=== PATIENT | male | born 1945 | race African-American/Black ===

== ENCOUNTER 2018-10-06 21:46 | Inpatient (IN) | payer OTHER ==
[~2018-10-06] VITALS: Ht 177.8 cm; Wt 54.4 kg
[2018-10-06 21:46] VITALS: BP 175/103
--- NOTE | 2018-10-06 21:46 | NUR ---
PT LINDEN ALS. TAKEN TO BED 6
--- NOTE | 2018-10-06 21:47 | NUR ---
Dr. Ferris examining patient.
--- NOTE | 2018-10-06 21:48 | NUR ---
Respiratory Therapist at bedside for respiratory intervention.
[2018-10-06] MEDS ORDERED: ALBUTEROL SULFATE/IPRATROPIU 3 ML SOL IH ONE (21:50)
--- NOTE | 2018-10-06 21:50 | NUR ---
PT IS A 73 Y/O MALE WHO PRESENTS TO THE ED C/O SHORTNESS OF BREATH. PER EMS PT WAS WALKING OUTSIDE AND SUDDENLY BECAME SOB. PT NOTED TO BE ON CPAP ON INITIAL ASSESSMENT, WITH INITIAL O2 SAT 80S. PATIENT NOTED TO HAVE DIFFICULTY BREATHING. LUNG SOUNDS DIMINISHED IN BILATERAL BASES. PT IN NO SIGNS OF CP, N/V/D. PT AWAKE AND ALERT, ABLE TO ANSWER QUESTIONS APPROPRIATELY. PT REPOSITIONED FOR COMFORT, BED IN LOWEST POSITION. ER MD DR. CERVANTES NOTIFIED. WILL CONTINUE TO MONITOR. HX HTN, DM NKA
--- NOTE | 2018-10-06 21:53 | NUR ---
X-Ray at bedside.
[2018-10-06] MEDS ORDERED: METF500T PO (22:00)
[2018-10-06] MEDS ORDERED: DORZ10SO23 OP (22:00)
[2018-10-06] MEDS ORDERED: VANCOMYCIN 1,000 MG in DEXTROSE 5% 250 ML IV ONE (22:00)
[2018-10-06] MEDS ORDERED: NITROGLYCERIN 2% 1 GM PKT TP ONE (22:00)
[2018-10-06] MEDS ORDERED: LISI-420 PO (22:00)
[2018-10-06] MEDS ORDERED: ATOR40TA PO (22:00)
[2018-10-06] MEDS ORDERED: FURO-572 PO (22:00)
[2018-10-06] MEDS ORDERED: PIPERACILLIN/TAZOBACTAM 3.375 GM in DEXTROSE 5% 50 ML IV ONE (22:00)
[2018-10-06] MEDS ORDERED: ORE25 PO (22:00)
[2018-10-06] MEDS ORDERED: ASPI-1718 PO (22:00)
[2018-10-06] MEDS ORDERED: METO100T14 PO (22:00)
[2018-10-06] MEDS ORDERED: NITROGLYCERIN 0.4 MG TAB SL ONE (22:00)
[2018-10-06] MEDS ORDERED: AMLO10TA PO (22:00)
[2018-10-06] MEDS ORDERED: ISOS10TA9 PO (22:00)
[2018-10-06 22:03] VITALS: BP 185/89
[2018-10-06] MEDS ORDERED: NACL 0.9% 250 ML IV ONE (22:15)
[2018-10-06 22:30] LABS: BASOPHILS % (AUTO) 0.6 % (0.0-2.0); EOSINOPHILS # (AUTO) 0.1 K/uL (0-0.4); EOSINOPHILS % (AUTO) 1.7 % (0.0-4.0); HEMATOCRIT 44.2 % (36-52); HEMOGLOBIN 14.1 g/dL (12.0-18.0); LYMPHOCYTES # (AUTO) 1.2 K/uL (2.0-11.5); LYMPHOCYTES % (AUTO) 22.8 % (20.5-51.1); MEAN CORPUSCULAR HEMOGLOBIN 29 pg (27-31); MEAN CORPUSCULAR HGB CONC 32 g/dL (33-37); MEAN CORPUSCULAR VOLUME 91.1 fL (80-94); MONOCYTES # (AUTO) 0.3 K/uL (0.8-1.0); NEUTROPHILS # (AUTO) 3.7 K/uL (1.8-7.7); NEUTROPHILS % (AUTO) 68.9 % (42.2-75.2); PLATELET COUNT (AUTO) 207 K/uL (140-450); RED BLOOD CELL COUNT(AUTO) 4.85 MIL/uL (4.20-6.10); RED CELL DISTRIBUTION WIDTH 15.5 % (11.6-13.7); WHITE BLOOD COUNT (AUTO) 5.4 K/uL (4.8-10.8)
[2018-10-06] MEDS ORDERED: VANCOMYCIN 1,000 MG VIAL ONE (22:30)
[2018-10-06] MEDS ORDERED: PIPERACILLIN/TAZOBACTAM 3.375 GM VIAL IV ONE (22:30)
--- NOTE | 2018-10-06 22:32 | NUR ---
PT RECEIVED IN ER VIA AMBULANCE ON CPAP. PT SOB. PLACED ON V60 BIPAP 10/5 100% AND ADMINISTERED DUONEB TX INLINE. PT WHEEZING BILATERALLY. ABG DONE AND RESULTS CALLED TO ER PHYSICIAN. FIO2 CHANGED TO 50% PER MD'S APPROVAL. PT STABLE AT THIS TIME. NO DISTRESS NOTED. WILL MONITOR.
--- NOTE | 2018-10-06 22:45 | NUR ---
REMOVED NITRO PATCH AT THIS TIME PER DR. CERVANTES.
[2018-10-06 22:55] LABS: ANION GAP 18.1 (8-16); CARBON DIOXIDE 21.7 mmol/L (21-32); CHLORIDE 104 mmol/L (98-107); CREATININE 1.7 mg/dL (0.7-1.3); GLUCOSE 243 mg/dL (74-106); POTASSIUM 3.8 mmol/L (3.5-5.1); SODIUM SERUM 140 mmol/L (136-145); UREA NITROGEN, BLOOD 17 mg/dL (7-18)
[2018-10-06 23:18] LABS: ASPARTATE AMINOTRANSFERASE 15 U/L (15-37); MAGNESIUM 1.8 mg/dL (1.8-2.4); THYROID STIMULATING HORMONE 5.21 uIU/mL (0.34-3.74); TOTAL BILIRUBIN 0.5 mg/dL (0.0-1.0)
[2018-10-06] MEDS ORDERED: NACL 0.9% 500 ML IV ONE (23:20)
[2018-10-06] MEDS ORDERED: ACETAMINOPHEN 325 MG TAB PO PRN (23:30)
[2018-10-06] MEDS ORDERED: ONDANSETRON 4 MG/2 ML VIAL IVP PRN (23:30)
[2018-10-06] MEDS ORDERED: HYDROcodone/APAP 7.5/325 MG 1 TAB PO PRN (23:30)
--- NOTE | 2018-10-06 23:53 | NUR ---
Patient will be admitted to care of DR. DANIEL. Admited to ICU. Will go to room 5. Belongings list completed. Report to FIBROUS PLASTERER.
[2018-10-06] MEDS ORDERED: DEXTROSE 50% 50 ML SYR IVP PRN (23:55)
[2018-10-07] VITALS (80 sets, daily range): BP systolic 98–225; BP diastolic 48–144
--- NOTE | 2018-10-07 00:01 | NUR ---
RECEIVED BEDSIDE REPORT FROM [facility], PATIENT AWAKE, ABLE TO FOLLOW COMMANDS. O2SAT 86% RR 30 LABORED AND DEEP, RT AT BEDSIDE, PLACED PATIENT ON BIPAP. A-FIB ON MONITOR, BP 142/92 MAP 110. NOTED 1+ PITTING EDEMA ON BLE, SKIN PEELING ON BOTH FEET, NO OPEN WOUNDS. LEFT FA 18 G INFUSING VANCO AT 165 ML. RIGHT FA 20 GM DRESSING INTACT. BED BATH PROVIDED. ADMISSION QUESTIONS ASKED. MRSA SCREEN COLLECTED AND SENT TO LAB.
[2018-10-07 00:09] LABS: PROTHROMBIN TIME 10.6 secs (10.8-13.4)
[2018-10-07 00:13] LABS: PHOSPHORUS 4.6 mg/dL (2.5-4.9); THYROID STIMULATING HORMONE 5.09 uIU/mL (0.34-3.74)
[2018-10-07] MEDS: ALBUTEROL SULFATE/IPRATROPIU 3 ML SOL IH PRN ×2 (00:39→09:47)
--- NOTE | 2018-10-07 00:50 | NUR ---
DR. GARNER IN THE UNIT. MADE AWARE THAT PT WANTS TO RECEIVED PNEUMONIA VACCINE UPON DISCHARGE. PER DR. GARNER, PT IS NOT ELIGIBLE FOR VACCINE DUE TO CURRENT PNEUMONIA AND ACUTE INFECTION.
[2018-10-07] MEDS: DEXT 5% /NACL 0.9% 1,000 ML IV SCH ×3 (01:04→20:25)
--- NOTE | 2018-10-07 01:04 | NUR ---
STARTED D5/NS AT 126 ML/HR IN LEFT FA 20 G.
--- NOTE | 2018-10-07 02:51 | NUR ---
LACTIC ACID NOW 3.1 WILL CONTINUE TO MONITOR
--- NOTE | 2018-10-07 03:00 | NUR ---
PATIENT SLEEPING IN BED, BIPAP ON, O2 SAT 93%. WILL CONTINUE TO MONITOR
--- NOTE | 2018-10-07 04:36 | NUR ---
EPISODE OF V TACH ON THE MONITOR FOR [address] GARNER
--- NOTE | 2018-10-07 05:20 | NUR ---
LABS DRAWN AT BEDSIDE
[2018-10-07] MEDS ORDERED: PIPERACILLIN/TAZOBACTAM 3.375 GM VIAL IV ONE (05:23)
[2018-10-07 05:43] LABS: BASOPHILS % (AUTO) 0.7 % (0.0-2.0); EOSINOPHILS % (AUTO) 0.3 % (0.0-4.0); HEMATOCRIT 37.5 % (36-52); LYMPHOCYTES # (AUTO) 0.7 K/uL (2.0-11.5); MEAN CORPUSCULAR HEMOGLOBIN 29 pg (27-31); MEAN CORPUSCULAR HGB CONC 32 g/dL (33-37); MEAN CORPUSCULAR VOLUME 90.2 fL (80-94); MONOCYTES # (AUTO) 0.4 K/uL (0.8-1.0); NEUTROPHILS # (AUTO) 4.9 K/uL (1.8-7.7); PLATELET COUNT (AUTO) 182 K/uL (140-450); RED BLOOD CELL COUNT(AUTO) 4.15 MIL/uL (4.20-6.10); RED CELL DISTRIBUTION WIDTH 14.8 % (11.6-13.7); WHITE BLOOD COUNT (AUTO) 6.1 K/uL (4.8-10.8)
[2018-10-07] MEDS ORDERED: ALBUTEROL SULFATE/IPRATROPIU 3 ML SOL IH SCH (06:00)
[2018-10-07 06:09] LABS: ANION GAP 14.4 (8-16); CARBON DIOXIDE 22.5 mmol/L (21-32); CHLORIDE 108 mmol/L (98-107); CREATININE 1.5 mg/dL (0.7-1.3); GLUCOSE 187 mg/dL (74-106); POTASSIUM 3.9 mmol/L (3.5-5.1); SODIUM SERUM 141 mmol/L (136-145); UREA NITROGEN, BLOOD 16 mg/dL (7-18)
[2018-10-07 06:14] LABS: MAGNESIUM 1.7 mg/dL (1.8-2.4); PHOSPHORUS 3.6 mg/dL (2.5-4.9)
[2018-10-07 06:14] LABS: CHOL/HDL RATIO 3.3 (1-4.5)
[2018-10-07] MEDS: BLOOD GLUCOSE MONITORING 1 DEV DEV FS SCH ×4 (07:00→20:47)
[2018-10-07] MEDS ORDERED: hePARIN / DEXT 5% PREMIX 250 ML IV SCH (07:00)
[2018-10-07] MEDS ORDERED: PIPER/TAZO 3.375GM/D5W PREMIX 50 ML IV SCH (07:00)
[2018-10-07] MEDS ORDERED: HEPARIN PER PHARMACY MC PRN (07:00)
--- NOTE | 2018-10-07 07:16 | NUR ---
RECEIVED REPORT FROM HOISTER RN. PT IN BED, NOTED WITH LABORED BREATHING ON BIPAP, FIO2 40%. A FIB ON MONITOR. SPO2 91%. HOB ELEVATED. A/O X3. SKIN DRY AND WARM TO TOUCH. LUNGS CLEAR. RFA 20G. D5%NS INFUSING AT 126 ML/HR. LFA 18G. SALINE LOCK. FLUSHED. LINES INTACT. ABDOMEN SOFT ROUND AND NON-TENDER. ACTIVE BOWEL SOUND. DRY, PEELING SKIN NOTED ON B/L FEET. EDEMATOUS BOTH LOWER EXTREMITIES NOTED. WILL CONTINUE TO MONITOR.
--- NOTE | 2018-10-07 07:16 | NUR ---
ENDORSED PATIENT TO DAY SHIFT NURSE ALEJANDRA FOR CONTINUITY OF CARE.
--- NOTE | 2018-10-07 07:17 | NUR ---
BLOOD GLUCOSE 166 RESIDENTS STATED NOT TO GIVE COVERAGE SINCE PATIENT NPO
[2018-10-07] MEDS ORDERED: ETOMIDATE 20 MG/10 ML VIAL IVP ONE ×2 (07:25→08:00)
[2018-10-07] MEDS ORDERED: fentaNYL 1 MG in NACL 0.9% 80 ML IV PRN (07:25)
[2018-10-07] MEDS ORDERED: SUCCINYLCHOLINE CHLORIDE 200 MG/10 ML VIAL IVP ONE (07:25)
[2018-10-07] MEDS ORDERED: MIDAZOLAM MDV 50 MG in NACL 0.9% 40 ML IV PRN (07:25)
--- NOTE | 2018-10-07 07:35 | NUR ---
DR. FRANCISCO AND DR. GAGE AT THE BEDSIDE. RT AT THE BEDSIDE. INTUBATION DONE BY DR. VALLADARES. ASSISTED NEEDED.
[2018-10-07] MEDS ORDERED: VANCOMYCIN PER PHARMACY MC PRN (07:40)
--- NOTE | 2018-10-07 07:40 | NUR ---
PATIENT HAS BEEN INTUBATED. SETTINGS: AC/PRVC RATE 14, VT 400, TI 0.80, PEEP 5, 100% O2. SUBSTERNAL RETRACTIONS CAN BE SEEN. CLOSELY MONITORING.
[2018-10-07] MEDS ORDERED: FUROSEMIDE 40 MG/4 ML VIAL IVP ONE ×2 (07:50→08:03)
[2018-10-07] MEDS ORDERED: PROPOFOL 1000 MG/100 ML PREMIX 100 ML IV ONE (07:54)
--- NOTE | 2018-10-07 08:00 | NUR ---
INSERTED NG-TUBE. ABLE ASPIRATE GASTRIC CONTENTS. POSITIVE PLACEMENT NOTED.
--- NOTE | 2018-10-07 08:15 | NUR ---
INSERTED SOTO CATHETER. URINE SPECIMEN SENT TO THE LAB FOR UA MICROSCOPIC.
[2018-10-07 08:40] LABS: APPEARANCE,URINE SL CLOUDY (CLEAR); BILIRUBIN,URINE NEGATIVE (NEGATIVE); BLOOD, URINE TRACE-I (NEGATIVE); COLOR,URINE YELLOW (YELLOW); LEUKOCYTE ESTERASE ,URINE NEGATIVE (NEGATIVE); NITRITE, URINE NEGATIVE (NEGATIVE); PH,URINE 5.5 (5.0-9.0); UGLUCOSE NEGATIVE (NEGATIVE)
--- NOTE | 2018-10-07 08:45 | NUR ---
SUCTIONED LARGE AMOUNT OF BLOOD TINGED SPUTUM. VAP ORAL CARE PROVIDED. KEPT PT CLEAN AND DRY. REPOSITIONED. BED IN LOW POSITIONED LOCKED.
[2018-10-07 08:47] LABS: BARBITURATE, URINE NEG. ng/ml (NEG <=200); BENZODIAZEPINE, URINE NEG. ng/mL (NEG <=200); CANNABINOID, URINE NEG. ng/mL (NEG <=50); COCAINE, URINE NEG. ng/mL (NEG <=300); OPIATE, URINE NEG. ng/mL (NEG <=2000); PHENCYCLIDINE SCREEN,URINE NEG. ng/mL (NEG <=25)
[2018-10-07] MEDS ORDERED: metFORMIN 500 MG TAB PO SCH (09:00)
[2018-10-07] MEDS: DORZOLAMIDE 2% OP 10 ML BTL OP SCH ×2 (09:00→20:30)
[2018-10-07] MEDS ORDERED: MAG SULF 2000 MG/WATER PREMIX 50 ML IV SCH (09:00)
--- NOTE | 2018-10-07 09:23 | NUR ---
PATIENT HAS BEEN SCREENED AND CATEGORIZED HIGH NUTRITION RISK. PATIENT WILL BE SEEN WITHIN 1-2 DAYS OF ADMISSION. 10/08/[address]
[2018-10-07] MEDS: fentaNYL 1 MG in NACL 0.9% 80 ML IV PRN (09:27)
[2018-10-07] MEDS: MIDAZOLAM MDV 50 MG in NACL 0.9% 40 ML IV PRN (09:33)
[2018-10-07] MEDS: PROPOFOL 1000 MG/100 ML PREMIX 100 ML IV PRN ×4 (09:43→22:38)
[2018-10-07] MEDS: BUDESONIDE 0.25 MG/2 ML NEBU INH SCH ×2 (09:46→19:55)
[2018-10-07] MEDS: AMIODARONE 450 MG in DEXTROSE 5% 250 ML IV SCH ×2 (09:55→20:27)
[2018-10-07 10:18] LABS: RBC,URINE 0-5 /HPF (0-5); WBC,URINE 0-5 /HPF (0-5)
[2018-10-07] MEDS: hePARIN / DEXT 5% PREMIX 250 ML IV SCH (10:26)
[2018-10-07] MEDS: PANTOPRAZOLE 40 MG INJ VIAL IVP SCH (10:37)
[2018-10-07] MEDS: ASPIRIN 81 MG TAB.CHEW PO SCH (10:37)
[2018-10-07] MEDS: ATORVASTATIN 20 MG TAB PO SCH (10:38)
[2018-10-07] MEDS: DOCUSATE SODIUM 100 MG GELCAP PO SCH ×2 (10:38→20:31)
--- NOTE | 2018-10-07 11:10 | NUR ---
CENTRAL LINE INSERTION ABORTED FOR QUESTIONABLE BREAK IN THE GUIDEWIRE DURING INSERTION.
--- NOTE | 2018-10-07 11:15 | NUR ---
CALLED [facility], SPOKE TO [facility] FOR URGENT TRANSFER TO HIGHER LEVEL OF CARE FOR GUIDE WIRE RETRIEVAL NEEDS FOR INTERVENTIONAL RADIOLOGY.
--- NOTE | 2018-10-07 11:40 | NUR ---
CALLED [facility], SPOKE TO PRODUCT MARKETING DIRECTOR FOR URGENT TRANSFER TO HIGHER LEVEL OF CARE FOR GUIDE WIRE RETRIEVAL NEEDS FOR INTERVENTIONAL RADIOLOGY.
[2018-10-07] MEDS: INSULIN LISPRO SLIDING SCALE 100 UNITS/ML VIAL SUBQ PRN ×3 (11:51→20:51)
[2018-10-07] MEDS: ALBUTEROL SULFATE/IPRATROPIU 3 ML SOL IH SCH ×4 (11:58→23:22)
--- NOTE | 2018-10-07 12:09 | NUR ---
CHEST X-RAY RESULT REVEALED THAT THERE IS NO FOREIGN OBJECT IN THE CHEST. DR. LEA IN ICU MADE AWARE. OLD GUIDE WIRE USED DURING CENTRAL LINE INSERTION FOR PATIENT WAS COMPARED TO NEW SET OF CENTRAL LINE GUIDE WIRE. BOTH GUIDE WIRES WERE EQUAL IN LENGTH. NO BROKEN IN PATIENT'S GUIDE WIRE NOTED.
--- NOTE | 2018-10-07 13:30 | NUR ---
PATIENT'S SETTINGS CHANGED TO: RATE 16, VT 450, INSP TIME 0.8, PEEP 7, 80% O2. PT IS STABLE. CLOSELY MONITORED.
--- NOTE | 2018-10-07 14:15 | NUR ---
10/07/18 RD INITIAL ASSESSMENT COMPLETED PLEASE REFER TO NUTRITION ASSESSMENT UNDER CARE ACTIVITY FOR ESTIMATED NUTRITIONAL NEEDS. RD RECOMMENDATIONS: 1. RECOMMEND INCREASE TF RATE OF GLUCERNA 1.2 TO 65ML/HR, FWF:100ML Q 6HR. THIS PROVIDES 1872KCAL, 94G PROTEIN AND 1660ML TOTAL FLUID DAILY. THIS MEETS 92% CALORIC NEEDS AND 100% PROTEIN NEEDS. 2.PROPOFOL AT 12.24ML/HR PROVIDES AN ADDITIONAL 324KCAL. 3. RD WILL F/U 2-3 DAYS; HIGH RISK. ELOY LIN, RD
--- NOTE | 2018-10-07 14:53 | NUR ---
RESTING IN BED. CONTINUE ON VENT SETTING AC/PRVC FIO2 80% TV 450, RR 16 PEEP 7. CONTINUE ON SEDATION RASS -4. HOB ELEVATED. BED IN LOW POSITION LOCKED.
[2018-10-07] MEDS: PIPERACILLIN/TAZOBACTAM 3.375 GM in DEXTROSE 5% 50 ML IV SCH ×2 (15:21→23:35)
--- NOTE | 2018-10-07 15:30 | NUR ---
NG-TUBE FEEDING GLUCERNA STARTED.
--- NOTE | 2018-10-07 16:30 | NUR ---
RESIDUAL NOTED 0 ML. CONTINUED NG-TUBE FEEDING.
--- NOTE | 2018-10-07 16:53 | NUR ---
ABG ON SETTINGS OF: RATE 16, VT 450, INSP TIME 0.8, PEEP 7, 80% O2 - PH 7.35, CO 34, PO 69, HCO3 19, SO2 93.5. DR VALLADARES HAS ORDERED TO CHANGE PEEP TO 8.
--- NOTE | 2018-10-07 19:00 | NUR ---
NO CHANGE IN CONDITION NOTED. CONTINUE ON SAAME VENT SETTING. ON SEDATION. RASS -4. HOB ELEVATED. IV SITES INTACT.
--- NOTE | 2018-10-07 19:25 | NUR ---
REPORT GIVEN TO INSTRUMENTAL TEACHER RN FOR CONTINUITY OF CARE. PT STABLE.
--- NOTE | 2018-10-07 19:30 | NUR ---
RECEIVED REPORT FROM MORNING RN, ALEJANDRA, FOR CONTINUITY OF CARE. VS STABLE AT THIS TIME. AFEBRILE. FLACC 0. PT UNABLE TO MAKE NEEDS KNOW OR VERBALIZE UNDERSTANDING. PT CURRENTLY SEDATED WITH PROPOFOL AT 50MCG/KG/MIN WITH DRY WT 68KG. RASS -4. FENTANYL DRIP RUNNING AT 34MCG/HR. VERSED AT 2MG/HR. PT DOES NOT APPEAR TO BE IN ANY DISCOMFORT AT THIS TIME. LUNG SOUNDS DIMINISHED. ETT TO VENT WITH SETTINGS A/C VC FIO2 80%, TV 450, RR16, AND PEEP 7. CHEST RISE SYMMETRIC. NO SOB NOTED. S1+S2 HEARD. PULSES PALPABLE IN ALL EXTREMITIES. AFIB ON MONITOR. BP WNL. PT ON AMIODARONE DRIP AT 0.5MG/MIN. PT ON HEPARIN AT 820 UNITS/HR. ABDOMEN ROUND, SOFT AND NONDISTENDED. BS ACTIVE IN ALL QUADRANTS. NGT THROUGH RIGHT NARES. SECURED IN PLACE. PLACEMENT CHECKED. NO RESIDUAL ASPIRATED. PT HAS GLUCERNA AT 20ML/HR. PT HAS RIGHT UPPER ARM PICC LINE THAT IS PATENT, INTACT AND ASYMPTOMATIC. DRESSING C/D/I WELL. PT HAS D5 NS AT 75ML/HR. SKIN IS WARM AND DRY. PT'S BILATERAL FOOT IS DRY AND FLAKY. SOTO CATHETER IN PLACE WITH CLOUDY, DARK JASS URINE WITH SEDIMENTS. KEPT HOB AT 30 DEGREES. BED AT LOW POSSIBLE POSITION. ALL SAFETY PRECAUTIONS ARE IN PLACE.
--- NOTE | 2018-10-07 20:02 | NUR ---
RECEIVED PT INTUBATED, VENT CK DONE, PEEP 8, AND I DECREASED FIO2 TO 70%, MED NEB IN LINE DUONEB AND FALLOW WITH PULMICORT
[2018-10-07] MEDS ORDERED: AMIODARONE 450 MG/9 ML VIAL IV ONE (20:33)
--- NOTE | 2018-10-07 20:43 | NUR ---
DR. BRAVO AT BEDSIDE TO SEE PT. UPDATED HIM REGARDING THE PT'S CONDITION. WILL FOLLOW-UP WITH ANY NEW ORDERS.
--- NOTE | 2018-10-07 20:44 | NUR ---
CALLED DR. GARNER TO NOTIFY HIM THAT PT'S FAMILY IS AT BEDSIDE AND WANTED TO SPEAK WITH HIM REGARDING THE PT'S CONDITION. PER DR. GARNER, HE WILL COME TO THE UNIT
--- NOTE | 2018-10-07 20:49 | NUR ---
DR. GARNER AT BEDSIDE TO SPEAK WITH PT'S FAMILY.
[2018-10-07] MEDS ORDERED: VANCOMYCIN 1,000 MG in DEXTROSE 5% 250 ML IV SCH (21:00)
[2018-10-07] MEDS: AZITHROMYCIN 500 MG in DEXTROSE 5% 250 ML IV SCH (22:13)
[2018-10-07] MEDS ORDERED: AZITHROMYCIN 500 MG INJ VIAL IV ONE (22:16)
--- NOTE | 2018-10-07 23:26 | NUR ---
CALLED LAB TO NOTIFY THEM REGARDING NEW ORDERS THAT DR. BRAVO PUT IN WHEN HE MADE ROUNDS. SPOKE WITH ABILIO AND ACCORDING TO HER IT WAS COLLECTED.
--- NOTE | 2018-10-07 23:41 | NUR ---
PT'S FEEDING RATE INCREASED. CURRENTLY RUNNING AT 30ML/HR.
--- NOTE | 2018-10-07 23:52 | NUR ---
VENT CK DONE, PEEP AT 6, FIO2 TO 60%
[2018-10-08] VITALS (102 sets, daily range): BP systolic 89–172; BP diastolic 51–124
--- NOTE | 2018-10-08 00:30 | NUR ---
RECEIVED A CALL FROM LAB, PER ABILIO TB GOLD TO BE DRAWN ON 10/08/18 IN THE AFTERNOON. WILL COMMUNICATE TO THE NEXT SHIFT.
--- NOTE | 2018-10-08 01:17 | NUR ---
VS REMAINS STABLE. SINUS ARRHYTHMIA ON MONITOR. RESPIRATIONS ARE EVEN AND UNLABORED. PT DOES NOT APPEAR TO BE EXPERIENCING ANY DISCOMFORT AT THIS TIME. FLACC 0. RASS -4. ALL SAFETY PRECAUTIONS ARE IN PLACE. PICC LINE IN USE AT THIS TIME. ALL DRIPS ARE LABELED. WILL CONTINUE TO MONITOR PT.
[2018-10-08] MEDS: DEXT 5% /NACL 0.9% 1,000 ML IV SCH ×2 (02:22→15:52)
[2018-10-08] MEDS: PROPOFOL 1000 MG/100 ML PREMIX 100 ML IV PRN ×9 (03:00→23:53)
--- NOTE | 2018-10-08 03:11 | NUR ---
PT REMAINS SEDATED AT THIS TIME. RASS -4. FLACC 0. VS STABLE WITH HR BETWEEN SINUS ARRHYTHMIA AND AFIB. RESPIRATIONS ARE EVEN AND UNLABORED. CHEST RISE SYMMETRIC. OXYGEN SATURATIONS WNL. NO BM NOTED AT THIS TIME. WILL RECHECK RESIDUAL AND INCREASE FEEDING TOLERATED. ALL IV SITES REMAINS INTACT AND ASYMPTOMATIC.
--- NOTE | 2018-10-08 03:20 | NUR ---
PEEP 5, FIO2 AT 55%, PT SATURATION IS MORE THAN 96%
[2018-10-08] MEDS: ALBUTEROL SULFATE/IPRATROPIU 3 ML SOL IH SCH ×6 (03:38→23:36)
--- NOTE | 2018-10-08 05:00 | NUR ---
NO CHANGE IN PT'S CONDITION AT THIS TIME. VS STABLE. NO BM NOTED. ALL SAFETY PRECAUTIONS ARE IN PLACE. WILL CONTINUE TO MONITOR PT.
[2018-10-08 06:35] LABS: MAGNESIUM 1.9 mg/dL (1.8-2.4); PHOSPHORUS 4.2 mg/dL (2.5-4.9)
[2018-10-08 06:39] LABS: ANION GAP 12.4 (8-16); CARBON DIOXIDE 25.5 mmol/L (21-32); CHLORIDE 105 mmol/L (98-107); CREATININE 1.8 mg/dL (0.7-1.3); GLUCOSE 167 mg/dL (74-106); POTASSIUM 3.9 mmol/L (3.5-5.1); SODIUM SERUM 139 mmol/L (136-145); UREA NITROGEN, BLOOD 18 mg/dL (7-18)
[2018-10-08] MEDS: MIDAZOLAM MDV 50 MG in NACL 0.9% 40 ML IV PRN ×2 (06:42→22:02)
[2018-10-08] MEDS: PIPERACILLIN/TAZOBACTAM 3.375 GM in DEXTROSE 5% 50 ML IV SCH ×3 (06:45→23:33)
[2018-10-08] MEDS: BLOOD GLUCOSE MONITORING 1 DEV DEV FS SCH ×4 (06:48→20:51)
[2018-10-08] MEDS: INSULIN LISPRO SLIDING SCALE 100 UNITS/ML VIAL SUBQ PRN (06:49)
[2018-10-08 06:54] LABS: BASOPHILS # (AUTO) 0.1 K/uL (0.00-0.22); BASOPHILS % (AUTO) 0.9 % (0.0-2.0); EOSINOPHILS # (AUTO) 0.3 K/uL (0-0.4); HEMATOCRIT 36.7 % (36-52); HEMOGLOBIN 11.9 g/dL (12.0-18.0); LYMPHOCYTES # (AUTO) 1.1 K/uL (2.0-11.5); LYMPHOCYTES % (AUTO) 13.9 % (20.5-51.1); MEAN CORPUSCULAR HEMOGLOBIN 30 pg (27-31); MEAN CORPUSCULAR HGB CONC 33 g/dL (33-37); MEAN CORPUSCULAR VOLUME 90.8 fL (80-94); MONOCYTES # (AUTO) 0.4 K/uL (0.8-1.0); MONOCYTES % (AUTO) 5.7 % (1.7-9.3); NEUTROPHILS # (AUTO) 5.8 K/uL (1.8-7.7); NEUTROPHILS % (AUTO) 75.5 % (42.2-75.2); PLATELET COUNT (AUTO) 209 K/uL (140-450); RED BLOOD CELL COUNT(AUTO) 4.04 MIL/uL (4.20-6.10); RED CELL DISTRIBUTION WIDTH 15.3 % (11.6-13.7); WHITE BLOOD COUNT (AUTO) 7.7 K/uL (4.8-10.8)
[2018-10-08] MEDS: BUDESONIDE 0.25 MG/2 ML NEBU INH SCH ×2 (07:19→19:24)
--- NOTE | 2018-10-08 07:19 | NUR ---
RECEIVED PT ON VENT RATE 16, VT 450, PEEP 5, O2 55%. HR 96, SAT 100%. NO RESP DISTRESS. SEMI FOWLERS POSITION. VENT BRAKES ON. VENT PLUGGED INTO RED OUTLETS. AMBU BAG AT BEDSIDE.
--- NOTE | 2018-10-08 07:30 | NUR ---
REPORT GIVEN TO MORNING RNALEXSANDER FOR CONTINUITY OF CARE. VS STABLE AT THIS TIME. ENDORSED PT'S BELONGINGS THAT ARE AT BEDSIDE.
--- NOTE | 2018-10-08 07:30 | NUR ---
RECEIVED BEDSIDE REPORT FROM PAPER REWINDER OPERATOR RN. PT IS SEDATED, RASS -4. AFEBRILE. FLACC 0. PT UNABLE TO MAKE NEEDS KNOW OR FOLLOW COMMANDS. A. FIB ON MONITOR. S1+S2 HEARD. PULSES PALPABLE IN ALL EXTREMITIES. PT IS ETT TO VENT WITH SETTINGS A/C PRVC FIO2 55%, TV 450, RR 16, AND PEEP 5. CHEST RISE SYMMETRIC BUT BREATHING LABORED. RHONCHI HEARD BILATERALLY, DIMINISHED LOWER LOBES. PICC LINE TO RIGHT UPPER ARM, PERIPHERAL IV G 20 TO RIGHT FOREARM, G 18 TO LEFT FOREARM PATENT, INTACT, ASYMPTOMATIC WITH GOOD BLOOD RETURN. PT IS ON PROPOFOL DRIP AT 50 MCG/KG/MIN WITH DRY WT 68KG, FENTANYL DRIP RUNNING AT 34 MCG/HR, VERSED DRIP AT 2MG/HR, AMIODARONE DRIP AT 0.5 MG/MIN, HEPARIN DRIP AT 960 UNITS/HR, IVF D5 NS AT 75ML/HR. NGT IN PLACE TO RIGHT NARE, PLACEMENT CONFIRMED, RESIDUAL 100 ML. PT IS RECEIVING TF GLUCERNA AT 40ML/HR, WATER FLUSH 100 ML Q6H. SKIN IS DRY AND WARM TO TOUCH, DRY AND FLAKY BILATERAL FOOT NOTED. SOTO CATH IN PLACE DRAINING CLOUDY, DARK JASS URINE WITH SEDIMENTS. HOB AT 30 DEGREES. BED AT LOWEST POSITION LOCKED. CALL LIGHT WITHIN REACH. WILL CONTINUE TO MONITOR.
--- NOTE | 2018-10-08 08:30 | NUR ---
PT STILL HAS A. FIB AND PER DR. LANDAVERDE, CONTINUE AMIODARONE DRIP AT THIS TIME.
[2018-10-08] MEDS ORDERED: FUROSEMIDE 20 MG/2 ML VIAL IVP SCH (09:00)
[2018-10-08] MEDS: ASPIRIN 81 MG TAB.CHEW PO SCH (09:11)
[2018-10-08] MEDS: ATORVASTATIN 20 MG TAB PO SCH (09:11)
[2018-10-08] MEDS: PANTOPRAZOLE 40 MG INJ VIAL IVP SCH (09:11)
[2018-10-08] MEDS: DOCUSATE SODIUM 100 MG GELCAP PO SCH ×2 (09:11→20:53)
[2018-10-08] MEDS: fentaNYL 1 MG in NACL 0.9% 80 ML IV PRN (09:13)
[2018-10-08] MEDS: DORZOLAMIDE 2% OP 10 ML BTL OP SCH ×2 (09:14→20:54)
--- NOTE | 2018-10-08 09:15 | NUR ---
MEDICATIONS ADMINISTERED ORDERED. PT TOLERATED WELL.
--- NOTE | 2018-10-08 09:30 | NUR ---
P.T. NOTES D/C P.T EVAL ORDER DUE TO PATIENT IS INTUBATED PER NURSE DEBORAH. PLAN: WE'LL AWAIT FOR NEW ORDERS WHEN HE GETS EXTUBATED AND IS MORE MEDICALLY APPROPRIATE FOR P.T. SERVICES.
[2018-10-08] MEDS: AMIODARONE 450 MG in DEXTROSE 5% 250 ML IV SCH (10:42)
--- NOTE | 2018-10-08 11:19 | NUR ---
WOUND CARE EVALUATION FOR LOW HAI SCALE AT RISK, PRESSURE INJURY PREVENTION INTERVENTIONS IN PLACE. SKIN ASSESSMENT DONE WITH PRIMARY RN, NO OPEN ACTIVE WOUNDS, XEROSIS TO UPPER AND LOWER EXTREMITIES. RECOMMENDATIONS: -PLEASE APPLY HYDRA GUARD TO BILATERAL UPPER AND LOWER EXTREMITIES BID AND LEAVE IT OPEN TO AIR -APPLY HYDRA GUARD TO SACRALCOCCYX BID AND LEAVE IT OPEN TO AIR PREVENTION -TURN AND REPOSITION PATIENT Q 2H -ASSESS AND MONITOR SKIN CONDITION DURING POSITION CHANGE -OFFLOAD BILATERAL HEELS BY PLACING PILLOWS UNDER CALVES AT ALL TIMES, UNLESS OTHERWISE CONTRAINDICATED -PRESSURE REDISTRIBUTION BY PLACING PILLOWS AND OFFLOADING SACRALCOCCYX -KEEP SKIN CLEAN AND DRY AT ALL TIMES.
[2018-10-08] MEDS: hePARIN / DEXT 5% PREMIX 250 ML IV SCH ×2 (12:59→22:27)
--- NOTE | 2018-10-08 13:00 | NUR ---
DR. LANDAVERDE MADE AWARE OF PT'S INCREASED BLOOD PRESSURE 161/111 AND RR IN 40'S. TEMP 100.4. DR. LANDAVERDE AT BEDSIDE EXAMINING PT. WILL FOLLOW UP ON ORDERS.
--- NOTE | 2018-10-08 13:20 | NUR ---
DR. BELTRÁN IN TO SEE AND EXAMINED PT, AWARE OF PT'S ABNORMAL EKG. WILL FOLLOW UP ON ORDERS.
[2018-10-08] MEDS ORDERED: METOPROLOL 25 MG TAB GT SCH ×2 (13:30→21:00)
--- NOTE | 2018-10-08 13:47 | NUR ---
TEMP 99.8 AT THIS TIME. WILL CONTINUE TO MONITOR.
--- NOTE | 2018-10-08 14:15 | NUR ---
PT SEEN AND EXAMINED BY DR. VALLADARES. DR. VALLADARES SPOKE WITH PT'S [id number] HORACIO REGARDING PT'S CONDITION. WILL FOLLOW UP ON ORDERS.
--- NOTE | 2018-10-08 14:20 | NUR ---
TUBE FEEDING RESIDUALS [address] VALLADARES, KEEP TUBE FEEDING RATE AT 10 ML/HR AT THIS TIME.
--- NOTE | 2018-10-08 14:55 | NUR ---
RECEIVED A CALL FROM DR. BRAVO, UPDATES GIVEN ON PT'S CONDITION. PER DR. BRAVO, DISCONTINUE VANCOMYCIN. PHARMACIST MADE AWARE.
[2018-10-08] MEDS ORDERED: AMIODARONE 200 MG TAB PO SCH (16:00)
--- NOTE | 2018-10-08 16:05 | NUR ---
VAP ORAL CARE GIVEN. TURNED AND REPOSITIONED FOR COMFORT AND PRESSURE OFF LOADING. PT TOLERATED WELL. VSS. WILL CONTINUE TO MONITOR.
--- NOTE | 2018-10-08 18:30 | NUR ---
DR. TURK IN TO SEE PT. UPDATES GIVEN ON PT'S CONDITION. WILL FOLLOW UP ON ORDERS.
--- NOTE | 2018-10-08 19:18 | NUR ---
PROPOFOL DRY WEIGHT 68 KG BEING USED
--- NOTE | 2018-10-08 19:19 | NUR ---
REPORT GIVEN TO PYROTECHNICIAN RN FOR CONTINUITY OF CARE. PT IS IN STABLE CONDITION.
--- NOTE | 2018-10-08 19:19 | NUR ---
RECEIVED BEDSIDE REPORT FROM DAY SHIFT ALVIN BELTRE. PATIENT ETT TO VENT, SIZE 8, 24 CM AT LIP LINE. RT AT BEDSIDE GIVING BREATHING TREATMENT, ON AIRBORNE ISOLATION FOR RULE OUT TB, ALL SPUTUM SAMPLES HAVE BEEN COLLECTED AND SENT TO LAB, RESULTS ARE PENDING. HOB AT 30 DEGREES. NO SIGNS OF AGITATION AT THIS TIME. PROPOFOL INFUSING IN RIGHT PICC LINE AT 35 MCG/KG/MIN. FENTANYL INFUSING AT 68 MCG/HR AND VERSED INFUSING AT 4 MG/HR IN RIGHT UPPER ARM PICC, DRESSING CLEAN AND INTACT. HEPARIN INFUSING AT 1100 UNITS/ 9.6 ML/HR IN RIGHT FA 20 G PERIPHERAL LINE. NG TUBE IN PLACE IN RIGHT NARE. INFUSING GLUCERNA 1.2 AT 10 CC WITH WATER FLUSH 100 Q6H. RESIDUALS AT 500 ML. ACCORDING TO DAY SHIFT NURSE DR HERNÁNDEZ WANTED TO KEEP FEEDINGS INFUSING AT [address] IN PL[address] DRAINING CLEAR YELLOW URINE AT 100 ML. ORAL CARE PROVIDED, SCANT WHITE SECRETIONS SUCTIONED. NOTED PEELING ON BOTH FEET, NO OPEN WOUNDS. LEFT ARM 18 G IV SL DRESSING INTACT. BED IN LOWEST POSITION. WILL MONITOR CLOSELY. Addendum: 10/08/18 at 2019 by Clementine Colby RN PROPOFOL DRY WEIGHT 68 KG BEING USED
--- NOTE | 2018-10-08 19:30 | NUR ---
CALLED LAB TO VERIFY PTT TO BE DRAWN AT 1999.
--- NOTE | 2018-10-08 19:48 | NUR ---
RASS -4, BP 118/69 MAP 87 O2 SAT 97. DECREASED PROPOFOL TO 30 MCG/KG/MIN INFUSING AT 12.24 ML/HR.
--- NOTE | 2018-10-08 19:54 | NUR ---
CALLED RESIDENT DR TURK TO REPORT FEEDING RESIDUALS AT 500 ML. ACCORDING TO DAY SHIFT NURSE DR HERNÁNDEZ WANTS FEEDINGS AT 10 CC CONTINUOUSLY. ORDERED TO HOLD FEEDINGS FOR NOW AND DR TURK WILL FOLLOW UP WITH ORDERS.
--- NOTE | 2018-10-08 19:59 | NUR ---
CALL BACK FROM DR TURK TO HOLD TUBE FEEDINGS FOR NOW. WILL CONTINUE TO MONITOR.
--- NOTE | 2018-10-08 20:10 | NUR ---
PTT AND QUANTIFERON GOLD DRAWN RESULTS PENDING
--- NOTE | 2018-10-08 20:30 | NUR ---
PATIENT HAD A SHORT RUNS OF NON-SUSTAINED V-TACH AROUND 5 IN A ROW; DR. DELGADO INFORMED AND AWARE; NO NEW ORDER MADE.
--- NOTE | 2018-10-08 20:40 | NUR ---
DR BRAVO AT BEDSIDE, ASSESSMENT DONE, UPDATED CARE OF PLAN.
[2018-10-08] MEDS: METOPROLOL 25 MG TAB GT SCH (20:53)
[2018-10-08] MEDS: AZITHROMYCIN 500 MG in DEXTROSE 5% 250 ML IV SCH (20:54)
[2018-10-08] MEDS: AMIODARONE 200 MG TAB PO SCH (20:54)
[2018-10-08] MEDS: MIDAZOLAM MDV 100 MG in NACL 0.9% 80 ML IV PRN (21:32)
--- NOTE | 2018-10-08 21:32 | NUR ---
STARTED NEW BAG VERSED INFUSING AT 4 MG/HR
--- NOTE | 2018-10-08 21:59 | NUR ---
PROPOFOL TITRATED TO 25 MCG/KG/MIN INFUSING AT 10.2 ML/HR, RASS -3
--- NOTE | 2018-10-08 22:02 | NUR ---
TITRATED DOWN VERSED TO 3 ML/HR, RASS -3
--- NOTE | 2018-10-08 22:25 | NUR ---
DR DELGADO AT BEDSIDE, UPDATE GIVEN, NO NEW ORDERS AT THIS TIME.
--- NOTE | 2018-10-08 22:27 | NUR ---
APTT 43.9. BOLUS PATIENT WITH 2000 UNITS HEPARIN AND INCREASED HEPARIN DRIP TO 1240 UNITS INFUSING AT 12.4 ML/HR.
--- NOTE | 2018-10-08 22:49 | NUR ---
TITRATED PROPOFOL DOWN TO 20 MCG/KG/MIN INFUSING AT 8.16 ML/HR
--- NOTE | 2018-10-08 23:08 | NUR ---
TITRATED PROPOFOL TO 15 MCG/KG/MIN INFUSING AT 6.12 ML/HR, RASS -3, V/S STABLE
--- NOTE | 2018-10-08 23:53 | NUR ---
TITRATED PROPOFOL TO 10 MCG/KG/MIN INFUSING AT 4.08 ML/HR
--- NOTE | 2018-10-08 23:55 | NUR ---
ORAL CARE PROVIDED SCANT WHITE SECRETIONS NOTED
--- NOTE | 2018-10-08 23:57 | NUR ---
RESIDUALS AT 20 ML RESTARTED TUBE FEEDINGS AT 10 ML/HR
[2018-10-09] VITALS (105 sets, daily range): BP systolic 93–182; BP diastolic 52–107
--- NOTE | 2018-10-09 01:00 | NUR ---
REPOSITIONED PATIENT FOR COMFORT, V/S STABLE, BED IN LOWEST POSITION, RASS-3.
--- NOTE | 2018-10-09 01:40 | NUR ---
R/T AT BEDSIDE MAKING ROUNDS
--- NOTE | 2018-10-09 02:10 | NUR ---
RESIDUALS AT 20 ML, WILL CONTINUE TO MONITOR
--- NOTE | 2018-10-09 02:25 | NUR ---
D/C LEFT IV 18 G CATH INTACT AND LEFT FA 20 G CATH INTACT. PATIENT STILL HAS RIGHT UPPER ARM PICC AND 1 PERIPHERAL IV IN LEFT FA 20 G.
[2018-10-09] MEDS: fentaNYL 1 MG in NACL 0.9% 80 ML IV PRN ×2 (02:47→23:33)
--- NOTE | 2018-10-09 02:47 | NUR ---
ADMINISTERED NEW BAG FENTANYL INFUSING AT 68 MCG/HR. V/S STABLE
[2018-10-09] MEDS: PROPOFOL 1000 MG/100 ML PREMIX 100 ML IV PRN (02:49)
--- NOTE | 2018-10-09 02:49 | NUR ---
TITRATED DOWN PROPOFOL TO 5 MCG/KG/MIN INFUSING AT 2.04 ML/HR. RASS -3, V/S STABLE
[2018-10-09] MEDS: ALBUTEROL SULFATE/IPRATROPIU 3 ML SOL IH SCH ×6 (03:13→23:34)
--- NOTE | 2018-10-09 04:00 | NUR ---
REPOSITIONED FOR COMFORT, BED BATH PROVIDED, NO BM, SKIN INTACT. ORAL CARE PROVIDED. CATHETER CARE PROVIDED.
--- NOTE | 2018-10-09 04:35 | NUR ---
APTT BEING DRAWN AT BEDSIDE
--- NOTE | 2018-10-09 05:00 | NUR ---
RT AT BEDSIDE DOING ROUNDS
[2018-10-09 06:15] LABS: ANION GAP 13.4 (8-16); CARBON DIOXIDE 23.4 mmol/L (21-32); CHLORIDE 103 mmol/L (98-107); CREATININE 1.7 mg/dL (0.7-1.3); GLUCOSE 149 mg/dL (74-106); POTASSIUM 3.8 mmol/L (3.5-5.1); SODIUM SERUM 136 mmol/L (136-145); UREA NITROGEN, BLOOD 18 mg/dL (7-18)
--- NOTE | 2018-10-09 06:15 | NUR ---
RESIDENTS CAME TO BEDSIDE MADE ROUNDS. TOLD TO INCREASE FEEDING TOLERATED
[2018-10-09 06:29] LABS: MAGNESIUM 1.9 mg/dL (1.8-2.4); PHOSPHORUS 3.9 mg/dL (2.5-4.9)
--- NOTE | 2018-10-09 06:30 | NUR ---
rec'd pt on carescape vent setting pc 16 rr 16 peep 5 itime 1.0 fio2 55% alarms on and audible ambu bag at hob and vent is plugged into red outlet, i\l txs given with duoneb 3ml and pulmicort 0.25mg with no adverse reaction post tx b\sare clear bilaterally, sxn pt moderate amt of thick brown secretions, pt is orally intubated with 8.0 et tube secured with anchor fast at 26 cm and skin integrity is intact pt is resting
--- NOTE | 2018-10-09 06:36 | NUR ---
RT AT BEDSIDE
[2018-10-09] MEDS: BUDESONIDE 0.25 MG/2 ML NEBU INH SCH ×2 (06:39→19:49)
--- NOTE | 2018-10-09 06:45 | NUR ---
ADMINISTERED SCHEDULED ZOSYN. BG 121 NO COVERAGE NEEDED
[2018-10-09] MEDS: PIPERACILLIN/TAZOBACTAM 3.375 GM in DEXTROSE 5% 50 ML IV SCH ×3 (06:51→22:39)
[2018-10-09] MEDS: BLOOD GLUCOSE MONITORING 1 DEV DEV FS SCH ×4 (06:51→21:15)
[2018-10-09] MEDS: DEXT 5% /NACL 0.9% 1,000 ML IV SCH (06:51)
--- NOTE | 2018-10-09 07:05 | NUR ---
ENDORSED PATIENT TO DAY SHIFT NURSE ALEXSANDER, PATIENT RASS -3. V/S STABLE.
--- NOTE | 2018-10-09 07:30 | NUR ---
RECEIVED BEDSIDE REPORT FROM EGG PROCESSOR RN. PT IS SEDATED, RASS -3 W/ PROPOFOL DRIP AT 5 MCG/KG/MIN (DRY WT 68KG), FENTANYL DRIP AT 68 MCG/HR, VERSED DRIP AT 3 MG/HR. PT IS AFEBRILE. FLACC 0. SINUS TACHY W/ PAC'S ON MONITOR. S1+S2 HEARD. ETT TO VENT WITH SETTINGS A/C PC FIO2 55%, PINSP 16, RR 16, AND PEEP 5. BREATHING EVEN AND UNLABORED. LUNGS SOUND COARSE, DIMINISHED LOWER LOBES. PICC LINE TO RIGHT UPPER ARM, PERIPHERAL IV G 20 TO RIGHT FOREARM PATENT, INTACT, ASYMPTOMATIC WITH GOOD BLOOD RETURN. IN ADDITION SEDATION DRIPS, PT IS ALSO ON HEPARIN DRIP AT 1240 UNITS/HR, IV FLUID D5 NS AT 75ML/HR. ABDOMEN SOFT, ROUND, NONTENDER, NGT IN PLACE TO RIGHT NARE, PLACEMENT CONFIRMED, RESIDUAL 50 ML. PT IS RECEIVING TF GLUCERNA AT 30ML/HR, WATER FLUSH 100 ML Q6H. SKIN IS DRY AND WARM TO TOUCH. PULSES PALPABLE IN ALL EXTREMITIES. SOTO CATH IN PLACE DRAINING URINE TO GRAVITY. HOB AT 30 DEGREES. BED IN LOWEST POSITION LOCKED. CALL LIGHT WITHIN REACH. SAFETY PRECAUTIONS IN PLACE. NO SIGNS OF DISTRESS AT THIS TIME. WILL CONTINUE TO MONITOR.
[2018-10-09 08:18] LABS: BASOPHILS % (AUTO) 0.4 % (0.0-2.0); EOSINOPHILS # (AUTO) 0.5 K/uL (0-0.4); EOSINOPHILS % (AUTO) 6.5 % (0.0-4.0); HEMATOCRIT 35.9 % (36-52); HEMOGLOBIN 11.7 g/dL (12.0-18.0); LYMPHOCYTES # (AUTO) 1.6 K/uL (2.0-11.5); LYMPHOCYTES % (AUTO) 22.9 % (20.5-51.1); MEAN CORPUSCULAR HEMOGLOBIN 30 pg (27-31); MEAN CORPUSCULAR HGB CONC 33 g/dL (33-37); MEAN CORPUSCULAR VOLUME 90.7 fL (80-94); MONOCYTES # (AUTO) 0.5 K/uL (0.8-1.0); MONOCYTES % (AUTO) 7.3 % (1.7-9.3); NEUTROPHILS # (AUTO) 4.4 K/uL (1.8-7.7); NEUTROPHILS % (AUTO) 62.9 % (42.2-75.2); PLATELET COUNT (AUTO) 177 K/uL (140-450); RED BLOOD CELL COUNT(AUTO) 3.95 MIL/uL (4.20-6.10); RED CELL DISTRIBUTION WIDTH 15.3 % (11.6-13.7); WHITE BLOOD COUNT (AUTO) 6.9 K/uL (4.8-10.8)
[2018-10-09] MEDS: DOCUSATE SODIUM 100 MG GELCAP PO SCH ×2 (08:26→21:15)
[2018-10-09] MEDS: PANTOPRAZOLE 40 MG INJ VIAL IVP SCH (08:26)
[2018-10-09] MEDS: ASPIRIN 81 MG TAB.CHEW PO SCH (08:26)
[2018-10-09] MEDS: ATORVASTATIN 20 MG TAB PO SCH (08:26)
[2018-10-09] MEDS: AMIODARONE 200 MG TAB PO SCH ×2 (08:27→21:15)
[2018-10-09] MEDS: METOPROLOL 25 MG TAB GT SCH ×2 (08:27→21:14)
[2018-10-09] MEDS: DORZOLAMIDE 2% OP 10 ML BTL OP SCH ×2 (08:28→21:16)
--- NOTE | 2018-10-09 08:45 | NUR ---
MEDICATIONS ADMINISTERED ORDERED. PT TOLERATED WELL.
[2018-10-09] MEDS: hePARIN / DEXT 5% PREMIX 250 ML IV SCH (10:17)
--- NOTE | 2018-10-09 10:17 | NUR ---
PT SEEN AND EXAMINED BY DR. VALLADARES. WILL FOLLOW UP ON ORDERS.
--- NOTE | 2018-10-09 10:52 | NUR ---
PROPOFOL STOPPED PER DR. VALLADARES. RASS -3 AT THIS TIME. PT STILL ON VERSED AND FENTANYL DRIPS. VSS. WILL CONTINUE TO MONITOR.
--- NOTE | 2018-10-09 11:35 | NUR ---
PLACED PT ON CPAP 5 PS 10 AND PT FAILED TRIAL TWICE DUE TO APNEIC
[2018-10-09] MEDS: INSULIN LISPRO SLIDING SCALE 100 UNITS/ML VIAL SUBQ PRN (11:45)
--- NOTE | 2018-10-09 12:30 | NUR ---
TUBE FEEDING RESIDUALS 180 ML. PER SEBASTIAN BRIGHT TO RUN TF AT LOW RATE, AT 10 ML/HR AT THIS TIME. WILL CONTINUE TO MONITOR.
--- NOTE | 2018-10-09 13:05 | NUR ---
PT'S [id number], HORACIO, CALLED AND WAS GIVEN UPDATES ON PT.
--- NOTE | 2018-10-09 13:45 | NUR ---
PT ON VENT WITH ET SECURE AND INTACT. PT AMBU BAG AT BEDSIDE. PT FOUND ON VENT SETTINGS AT THIS TIME ARE 500/12/+5/40 FLOW. FIO2 45% WITH AN SPO2 OF 100%, WILL TITRATE FIO2 TO BE GREATER THAN OR EQUAL TO 92%. PEAK, PLAT AND MEAN PRESSURES NOTED IN CHART. WILL CALL DR VALLADARES AND VERIFY VENT MODE.
--- NOTE | 2018-10-09 14:45 | NUR ---
SPOKE WITH DR VALLADARES WENT OVER PT INFO AND SETTING SHE WOULD LIKE THE PT CHANGED BACK TO AC PC. MANAGER LINUX, CHARGE AND RN AWARE.
--- NOTE | 2018-10-09 14:46 | NUR ---
WILL CONTINUE TO MONITOR PT AT THIS TIME.
--- NOTE | 2018-10-09 15:30 | NUR ---
NO CHANGE IN CONDITION AT THIS TIME. VSS. PT IS AFEBRILE. ALL SAFETY PRECAUTIONS IN PLACE. NO S/SX OF DISTRESS NOTED AT THIS TIME.
[2018-10-09] MEDS ORDERED: FUROSEMIDE 20 MG/2 ML VIAL IVP SCH (16:30)
--- NOTE | 2018-10-09 17:15 | NUR ---
TUBE FEEDING RESIDUALS 180 ML. GLUCERNA 1.2 STILL AT 10 ML/HR AT THIS TIME.
[2018-10-09] MEDS ORDERED: KCL 20 MEQ/WATER INJ PREMIX 100 ML IV SCH (17:30)
[2018-10-09] MEDS ORDERED: MAG SULF 2000 MG/WATER PREMIX 50 ML IV SCH (17:30)
--- NOTE | 2018-10-09 17:46 | NUR ---
BED BATH GIVEN, REPOSITIONED FOR COMFORT AND OFF LOADING PRESSURE AREAS. PT TOLERATED WELL. NO S/SX OF ACUTE DISTRESS AT THIS TIME.
--- NOTE | 2018-10-09 18:10 | NUR ---
PER DR VALLADARES TOMORROW MORNING 10/10 START WEANING TRIALS AFTER PT IS TAKEN OFF SEDATION. WEANING SETTING CPAP 10/5 ABG AFTER 1 HR
--- NOTE | 2018-10-09 18:30 | NUR ---
DR. VELA IN THE UNIT. UPDATES GIVEN ON PT'S CONDITION. WILL FOLLOW UP ON ORDERS.
--- NOTE | 2018-10-09 19:30 | NUR ---
REPORT GIVEN TO SERVICE [facility]ATE CONTACT RN FOR CONTINUITY OF CARE. PT IS IN STABLE CONDITION.
--- NOTE | 2018-10-09 19:35 | NUR ---
RECEIVED BEDSIDE REPORT FROM MORNING SHIFT RN, ALEXSANDER. VSS, BP 124/72, HR 76, SATING 100%, RR 16, TEMP 97.8. ON ETT TO VENT, A/C PC MODE. FIO2=30%, PINSP 16, TINSP=1.0, RR 16, PEEP 5. PMAX 35. SR ON GRILL COOK. LUNG SOUNDS COARSE/CLEAR ON UPPER BILATERAL LOBES, CLEAR ON LOWER BILATER LOBES. BOWEL SOUNDS ACTIVE X4.NGT TO FEED, GLUCERNA 1.2 AT 10CC/HR, RESIDUAL OF 150ML, AUSCULTATED FOR PROPER PLACEMENT. PT HAS RFA 20 GAUGE PIV, AND GRETA PICC LINE INFUSING FENTANYL AT 34 MCG/MIN, VERSED AT 3MG/MIN, AND D5NS AT 75CC/HR. PT MAINTAINS RASS -3. NONVERBAL. SKIN IS DRY/DRY BUT RMEAINS INTACT, FLAKING FEET, SKIN NORMAL IN COLOR. AIRBORNE, ASPIRATION, FALL RISK PRECAUTIONS MAINTAINED.L HOB ELEVATED ABOVE 30 DEG.
--- NOTE | 2018-10-09 20:06 | NUR ---
RECEIVED PATIENT ENDOTRACHEALLY INTUBATED WITH 8.0 ETT AT 26 CM AT THE GUM LINES TO MECHANICAL VENTILATOR AT SETTINGS: AC/PC 16, RR 16, +5, 30%. VENT CHECK DONE. VENT ALARMS ON AND AUDIBLE. VENT PLUGGED INTO RED OUTLET. AMBU BAG AT [facility]. ORALLY SUCTIONED LARGE AMOUNT OF THICK, WHITE SECRETIONS. SCHEDULED BREATHING TREATMENTS ADMINISTERED. TOLERATED TREATMENTS WELL, NO ADVERSE SIDE EFFECTS. AIRWAY SECURE AND PATENT. SUCTIONED SMALL AMOUNT OF THICK BROWN/BLOOD TINGED SECRETIONS. NO RESPIRATORY DISTRESS NOTED AT THIS TIME. WILL CONTINUE TO MONITOR.
--- NOTE | 2018-10-09 20:30 | NUR ---
TUBE FEEDING HELD AT THIS TIME DUE TO RESIDUAL APPROX 200ML.
[2018-10-09] MEDS: AZITHROMYCIN 500 MG in DEXTROSE 5% 250 ML IV SCH (21:15)
--- NOTE | 2018-10-09 22:30 | NUR ---
TUBE FEEDING RESUMED AT THIS TIME DUE TO RESIDUAL OF 65ML, RESUMED TO 10CC/HR.
[2018-10-09] MEDS: METOCLOPRAMIDE 10 MG/2 ML INJ VIAL IVP PRN (23:19)
--- NOTE | 2018-10-09 23:47 | NUR ---
VENT CHECK DONE. VENT ALARMS ON AND AUDIBLE. AMBU BAG AT [facility]. SCHEDULED BREATHING TREATMENT ADMINISTERED. TOLERATED TX WELL, NO ADVERSE SIDE EFFECTS. SUCTIONED SMALL AMOUNT OF THICK, BROWN SECRETIONS. NO RESPIRATORY DISTRESS NOTED AT THIS TIME. WILL CONTINUE TO MONITOR.
[2018-10-10] VITALS (98 sets, daily range): BP systolic 95–211; BP diastolic 18–125
--- NOTE | 2018-10-10 02:32 | NUR ---
RESIDUAL OF 30ML, TUBE FEEDING INCREASED TO 20ML/HR AT THIS TIME, AUSCULTATED FOR PROPER PLACEMENT.
[2018-10-10] MEDS: DEXT 5% /NACL 0.9% 1,000 ML IV SCH (02:40)
[2018-10-10] MEDS: hydrALAZINE 20 MG/ML VIAL IVP PRN ×2 (03:06→09:59)
[2018-10-10] MEDS: ALBUTEROL SULFATE/IPRATROPIU 3 ML SOL IH SCH ×6 (03:15→23:29)
--- NOTE | 2018-10-10 03:30 | NUR ---
PATIENT TACHYPNEIC, TACHYCARDIC, PRESENTS WITH INCREASED WOB/RETRACTIONS, BLOOD PRESSURE ELEVATED AND DESATURATING. INCREASED FIO2 TO 60%. BREATHING TREATMENT ADMINISTERED. DR. VELA PAGED. ABG DRAWN WITHOUT INCIDENT. WILL CONTINUE TO MONITOR.
--- NOTE | 2018-10-10 03:50 | NUR ---
CALLED RESIDENT DR. VELA INFORMED THAT PT HAS INCREASED WORK OF BREATHING/CHEST RISE. RT TIMBO AT BEDSIDE ADMINISTERED BREATHING TREATMENT, CRACKLES ON BILATERAL LOBES AND TACHYPNEIC. PT BP WAS INCREASING TO 200'S AND 192, HYDRALAZINE WAS GIVEN AT THIS TIME PER ORDER.
--- NOTE | 2018-10-10 03:58 | NUR ---
DR. TURK AND DR VELA AT BEDSIDE TO SEE PATIENT, TO UPDATE WITH NEW ORDERS.
--- NOTE | 2018-10-10 04:09 | NUR ---
CALLED ALDO FROM LAB INFORMED OF STAT CHEST XRAY, RT TIMBO AT BEDSIDE TO COLLECT ABG.
--- NOTE | 2018-10-10 04:14 | NUR ---
CALLED [facility], INFORMED OF NEW ORDERS FOR LASIX AT THIS TIME, PHARM TO LOOK AT ORDERS.
[2018-10-10] MEDS ORDERED: FUROSEMIDE 20 MG/2 ML VIAL IVP SCH ×2 (04:30→09:00)
--- NOTE | 2018-10-10 04:48 | NUR ---
PT REPOSITIONED, ABG AND STAT CHEST XRAY COMPLETED. [facility] AT BEDSIDE, MORNING BLOOD DRAW COMPLETED BY RN.
[2018-10-10 06:19] LABS: ANION GAP 15.9 (8-16); CARBON DIOXIDE 21.1 mmol/L (21-32); CHLORIDE 102 mmol/L (98-107); CREATININE 1.5 mg/dL (0.7-1.3); GLUCOSE 245 mg/dL (74-106); SODIUM SERUM 135 mmol/L (136-145); UREA NITROGEN, BLOOD 22 mg/dL (7-18)
--- NOTE | 2018-10-10 06:20 | NUR ---
DR. CASTRO AT BEDSIDE TO SEE PT, UPDATED ON CONDITIONS.
[2018-10-10 06:31] LABS: PROTHROMBIN TIME 9.9 secs (10.8-13.4)
[2018-10-10 06:32] LABS: MAGNESIUM 1.9 mg/dL (1.8-2.4); PHOSPHORUS 3.9 mg/dL (2.5-4.9)
--- NOTE | 2018-10-10 06:47 | NUR ---
REPORTED CRITICAL LAB VALUES TO DR. PERSAUD ( CREAT 12.5, K 5.7, BUN 83). WILL FOLLOW UP WITH ORDERS/CONSULT.
--- NOTE | 2018-10-10 06:55 | NUR ---
REC'D PT ON CARESCAPE VENT SETTINGS PC 16 RR 16 PEEP 5 ITIME 1.00 FIO2 40% ALARMS ON AND AUDIBLE AND AMBU BAG AT SIDE OF VENT AND VENT IS PLUGGED INTO RED OUTLET, I\L TXS GIVEN WITH DUONEB 3ML AND PULMICORT 0.25MG WITH NO ADVERSE REACTION POST TX, B\S ARE COARSE BILATERALLY, SXN PT SMALL AMT OF THICK BROWN SECRETIONS, PT IS ORALLY INTUBATED WITH 8.0 ET TUBE AT 26CM AT MIDLINE AND SKIN INTEGRITY IS INTACT. PT IS RESTING WITH NO SIGNS OF DISTRESS NOTED
[2018-10-10] MEDS: BUDESONIDE 0.25 MG/2 ML NEBU INH SCH ×2 (07:03→19:28)
[2018-10-10 07:15] LABS: BASOPHILS % (AUTO) 0.3 % (0.0-2.0); EOSINOPHILS % (AUTO) 0.3 % (0.0-4.0); HEMATOCRIT 33.2 % (36-52); HEMOGLOBIN 10.8 g/dL (12.0-18.0); LYMPHOCYTES # (AUTO) 0.3 K/uL (2.0-11.5); LYMPHOCYTES % (AUTO) 3.6 % (20.5-51.1); MEAN CORPUSCULAR HEMOGLOBIN 29 pg (27-31); MEAN CORPUSCULAR HGB CONC 32 g/dL (33-37); MEAN CORPUSCULAR VOLUME 89.8 fL (80-94); MONOCYTES # (AUTO) 0.3 K/uL (0.8-1.0); MONOCYTES % (AUTO) 4.2 % (1.7-9.3); NEUTROPHILS # (AUTO) 6.4 K/uL (1.8-7.7); NEUTROPHILS % (AUTO) 91.6 % (42.2-75.2); PLATELET COUNT (AUTO) 161 K/uL (140-450); RED CELL DISTRIBUTION WIDTH 15.1 % (11.6-13.7)
--- NOTE | 2018-10-10 07:33 | NUR ---
REPORT GIVEN TO MORNING SHIFT ALVIN AUSTIN.
--- NOTE | 2018-10-10 08:00 | NUR ---
RECEIVED PATIENT WITH ENDOTRACHEAL TUBE SIZE 8.0, 25 IN THE GUM, ON PRESSURE CONTROL FIO2 40% RATE 16 PEEP 5 PRESSURE 35, SO2 98%, OPENS EYES TO VOICE, LOCALIZES TO PAIN WITH RIGHT ARM, HISTORY OF CVA, VERSED 4MGS/HR, FENTANYL 34.5 MCG/HR. AND TURNED OFF AT THIS TIME. PER RT CHEY " WILL DO CPAP IN AN HOUR". SINUS RHYTHM ON MONITOR, WITH NGT RIGHT NARES WITH GLUCERNA 25 CC/HR., NO RESIDUAL SO INCREASED TO 40 CC/HR., SOFT ABDOMEN, WITH SOTO CATHETER YELLOW URINE WITH A FEW WHITE SEDIMENTS NOTED, RIGHT HAND GAUGE 20 WITH D5NS AT 20CC/HR., RIGHT UPPER ARM PICC 2 LUMEN AND CONNECTED TO VERSED AND FENTANYL-IV SITES ASYMPTOMATIC, WITH BLISTER AT RIGHT UPPER ARM AND POPPED BLISTERS BESIDE IT.
[2018-10-10] MEDS: PIPERACILLIN/TAZOBACTAM 3.375 GM in DEXTROSE 5% 50 ML IV SCH ×3 (08:18→23:53)
[2018-10-10] MEDS: BLOOD GLUCOSE MONITORING 1 DEV DEV FS SCH ×4 (08:24→20:04)
[2018-10-10] MEDS: INSULIN LISPRO SLIDING SCALE 100 UNITS/ML VIAL SUBQ PRN ×2 (08:30→12:37)
[2018-10-10] MEDS: DOCUSATE SODIUM 100 MG GELCAP PO SCH ×2 (08:37→20:05)
[2018-10-10] MEDS: AMIODARONE 200 MG TAB PO SCH ×2 (08:37→20:05)
[2018-10-10] MEDS: PANTOPRAZOLE 40 MG INJ VIAL IVP SCH (08:37)
[2018-10-10] MEDS: METOPROLOL 25 MG TAB GT SCH ×2 (08:38→20:35)
[2018-10-10] MEDS: ATORVASTATIN 20 MG TAB PO SCH (08:38)
[2018-10-10] MEDS: ASPIRIN 81 MG TAB.CHEW PO SCH (08:38)
--- NOTE | 2018-10-10 08:57 | NUR ---
SEDATION TURNED OFF AT 0800 AND AT 0855 PT PLACED ON CPAP 5 PS 10 RN GEOVANNA AT BEDSIDE
--- NOTE | 2018-10-10 09:55 | NUR ---
RESTARTED VERSED AND FENTANYL AT SAME RATE DUE TO :PATIENT TACHYPNEIC IN THE 40s, ABDOMINAL BREATHING NOTED
[2018-10-10] MEDS: MIDAZOLAM MDV 100 MG in NACL 0.9% 80 ML IV PRN (09:57)
[2018-10-10] MEDS: METOCLOPRAMIDE 10 MG/2 ML INJ VIAL IVP PRN (09:58)
--- NOTE | 2018-10-10 10:08 | NUR ---
CALLED TO ICU 8 DUE TO PT HIGH RR 40 HEART RATE 106 AND BP 215\110 PT WAS IN DISTRESS CHANGED VENT MODE BACK TO PC ALVIN AUSTIN AT BEDSIDE
[2018-10-10] MEDS: DORZOLAMIDE 2% OP 10 ML BTL OP SCH ×2 (10:13→20:06)
--- NOTE | 2018-10-10 15:00 | NUR ---
DR. EASTON AT BEDSIDE AND UPDATED OF PATIENT'S STATUS. PER DR. EASTON " DO CPAP IN THE MORNING AND AFTER 1 HOUR CALL ME" ASKED DR. EASTON IF HE WANTS TO CHECK ABG AFTER 1 HOUR CPAP. PER PHYSICIAN "NO JUST CALL ME AFTER AN HOUR OF CPAP." INFORMED RT CHEY PATIENT IS FOR CPAP TOMORROW MORNING AND CALL DR. EASTON AFTER 1 HOUR
--- NOTE | 2018-10-10 15:34 | NUR ---
10/10/18 RD FOLLOW UP COMPLETED PLEASE REFER TO NUTRITION ASSESSMENT UNDER CARE ACTIVITY FOR ESTIMATED NUTRITIONAL NEEDS. 1. CONTINUE GLUCERNA 1.2 TO 65ML/HR, FWF:100ML Q 6HR -THIS PROVIDES 1872KCAL, 110 GM PROTEIN AND 1660ML TOTAL FLUID DAILY. THIS MEETS 92% CALORIC NEEDS AND 100% PROTEIN NEEDS. -PROPOFOL TOTAL DOSE 2ML/HR PROVIDES AN ADDITIONAL [address] WILL F/U 2-3 DAYS; HIGH RISK. KULWANT ZELAYA RD
--- NOTE | 2018-10-10 16:00 | NUR ---
PREPARED PATIENT FOR TRANSFER TO CT DEPARTMENT FOR CT CHEST
--- NOTE | 2018-10-10 16:31 | NUR ---
PT TO CT FOR SCAN OF CHEST BAGGED WITH 100% FIO2 BACK IN ICU 8 AT 1659 BACK ON VENT WITH SAME SETTINGS
--- NOTE | 2018-10-10 17:00 | NUR ---
PATIENT BACK TO ICU ROOM AND HOOKED TO MONITORS
--- NOTE | 2018-10-10 19:30 | NUR ---
RECEIVED BEDSIDE REPORT FROM DAY SHIFT ALVIN AUSTIN. ON AIRBORNE PRECAUTION TO R/O TB. PATIENT ETT TO VENT 26 CM AT LIP LINE, SIZE 8, HOB AT 30 DEGREES. AC, FIO2 40%, RR 16, PEEP 5, P-MAX 35. RHONCHI ON RIGHT SIDE UPPER LOBES, CLEAR ON LEFT SIDE BOTH LOBES. AFIB ON MONITOR, BP 117/62, HR 78, O2SAT 100% RR 16 EVEN AND NOT LABORED. ON FENTANYL ON 71 MCG/HR INFUSING AT 34.5 ML/HR AND VERSED AT 4 ML INFUSING AT 4 MG/HR IN RIGHT UPPER ARM PICC LINE, DOUBLE LUMEN, RASS -3, DRESSING INTACT. D5/NS INFUSING AT 10 ML/HR TKO IN RIGHT FA 20 G PERIPHERAL LINE, DRESSING INTACT. GLUCERNIA 1.2 INFUSING AT 65 ML/HR WITH WATER FLUSH 100 ML Q6H IN RIGHT NARES. SOTO CATH IN PLACE DRAINING CLEAR YELLOW URINE. NOTED SKIN TEAR/BLISTER ON RIGHT FA UNDER PICC, SKIN PINK, NOT BLEEDING, REINFORCED CONCRETE INSPECTOR. NOTED BILATERAL FEET PEELING, NOT OPEN. SIDE RAILS UP, WILL CONTINUE TO CLOSELY MONITOR.
--- NOTE | 2018-10-10 19:43 | NUR ---
RECEIVED PATIENT ENDOTRACHEALLY INTUBATED WITH 8.0 ETT TO MECHANICAL VENTILATOR AT SETTINGS: AC/PC 16, SET RR 16, +5, 40%. VENT CHECK DONE. VENT ALARMS ON AND AUDIBLE. VENT PLUGGED INTO RED OUTLET. AIRWAY SECURE AND PATENT. SUCTIONED SMALL AMOUNT OF THICK, BROWN/BLOOD TINGED SECRETIONS. AMBU BAG AT BEDSIDE. SCHEDULED BREATHING TREATMENTS ADMINISTERED. TOLERATED TREATMENTS WELL, NO ADVERSE SIDE EFFECTS. NO RESPIRATORY DISTRESS NOTED AT THIS TIME. WILL CONTINUE TO MONITOR.
[2018-10-10] MEDS: AZITHROMYCIN 500 MG in DEXTROSE 5% 250 ML IV SCH (20:04)
--- NOTE | 2018-10-10 20:04 | NUR ---
DUE MEDICATIONS GIVEN, RESIDUALS AT [address] BG 131 NO COVERAGE NEEDED. ORAL CARE PROVIDED. SLIGHT WHITE SECTIONS NOTED. PATIENT RASS-3, OPENS EYES WHEN NAME BEING CALLED. WAS ABLE TO OPEN MOUTH WHEN ASKED DURING ORAL CARE. DR BRAVO AT BEDSIDE, UPDATE GIVEN, NO NEW ORDERS AT THIS TIME. PILLOWS REPOSITIONED FOR COMFORT.
--- NOTE | 2018-10-10 20:37 | NUR ---
GAVE SCHEDULED SQ HEPARIN AND METOPROLOL. V/S STABLE. RASS-3.
--- NOTE | 2018-10-10 21:23 | NUR ---
VENT CHECK DONE. VENT ALARMS ON AND AUDIBLE. NO RESPIRATORY DISTRESS NOTED AT THIS TIME. FAMILY AT BEDSIDE. WILL CONTINUE TO MONITOR.
--- NOTE | 2018-10-10 21:30 | NUR ---
YO DELEON VISITED PATIENT, UPDATE GIVEN.
[2018-10-10] MEDS ORDERED: DEXT 5% / NACL 0.9% 500 ML IV SCH (23:15)
--- NOTE | 2018-10-10 23:41 | NUR ---
VENT CHECK DONE. VENT ALARMS ON AND AUDIBLE. AMBU BAG AT BEDSIDE. SCHEDULED BREATHING TREATMENT ADMINISTERED. TOLERATED TX WELL, NO ADVERSE SIDE EFFECTS. TITRATED FIO2 TO 35%, PULSE OX SAT 100%. RN NOTIFIED OF CHANGE. NO RESPIRATORY DISTRESS NOTED AT THIS TIME. WILL CONTINUE TO MONITOR.
--- NOTE | 2018-10-10 23:53 | NUR ---
GAVE DUE WILDA
[2018-10-11] VITALS (107 sets, daily range): BP systolic 91–210; BP diastolic 52–118
--- NOTE | 2018-10-11 | NUR ---
ORAL CARE PROVIDED, SCANT WHITE SECRETIONS NOTED. REPOSITIONED PATIENT FOR COMFORT.
--- NOTE | 2018-10-11 01:00 | NUR ---
APPLIED TRANSPARENT DRESSING ON RIGHT ARM SKIN TEAR/BLISTER.
[2018-10-11] MEDS: fentaNYL 1 MG in NACL 0.9% 80 ML IV PRN ×3 (01:27→23:48)
--- NOTE | 2018-10-11 01:30 | NUR ---
STARTED NEW BAG FENTANYL AT 78 MCG/HR INFUSING AT 7.1 ML/HR.
--- NOTE | 2018-10-11 03:20 | NUR ---
O2 SAT WENT DOWN TO 80'S % FOR FEW SECONDS THEN BACK TO 100%. WILL CONTINUE TO MONITOR.
--- NOTE | 2018-10-11 03:45 | NUR ---
R/T AT BEDSIDE DOING ROUNDS AND GOING TO GIVE BREATHING TREATMENT. AWARE THAT O2 SAT WENT DOWN TO 80'S FOR FEW SECONDS.
[2018-10-11] MEDS: ALBUTEROL SULFATE/IPRATROPIU 3 ML SOL IH SCH ×6 (03:47→23:22)
--- NOTE | 2018-10-11 04:00 | NUR ---
BED BATH PROVIDED, NO BM. REPOSITIONED FOR COMFORT. ORAL CARE DONE NO SECRETIONS NOTED. R/T AT BEDSIDE.
--- NOTE | 2018-10-11 04:01 | NUR ---
VENT CHECK DONE. VENT ALARMS ON AND AUDIBLE. SCHEDULED BREATHING TREATMENT ADMINISTERED. TOLERATED TX WELL, NO ADVERSE SIDE EFFECTS. SUCTIONED SMALL AMOUNT OF THICK, BROWN/BLOOD TINGED SECRETIONS. NO RESPIRATORY DISTRESS NOTED AT THIS TIME. WILL CONTINUE TO MONITOR.
[2018-10-11] MEDS: METOCLOPRAMIDE 10 MG/2 ML INJ VIAL IVP PRN ×2 (04:39→14:55)
--- NOTE | 2018-10-11 04:39 | NUR ---
GAVE PRN REGLAN FOR RESIDUALS OF 150 ML.
--- NOTE | 2018-10-11 05:00 | NUR ---
BLOOD DRAW DONE THROUGH RIGHT UPPER ARM PICC FOR LABS. EMPTIED 400 ML CLEAR YELLOW URINE.
--- NOTE | 2018-10-11 06:30 | NUR ---
BG 137 Addendum: 10/11/18 at 0703 by Clementine Colby RN NO COVERAGE NEEDED
[2018-10-11] MEDS: PIPERACILLIN/TAZOBACTAM 3.375 GM in DEXTROSE 5% 50 ML IV SCH ×3 (06:36→23:11)
[2018-10-11] MEDS: BLOOD GLUCOSE MONITORING 1 DEV DEV FS SCH ×4 (06:39→20:01)
[2018-10-11 06:55] LABS: CARBON DIOXIDE 24.4 mmol/L (21-32); CHLORIDE 104 mmol/L (98-107); CREATININE 1.4 mg/dL (0.7-1.3); GLUCOSE 146 mg/dL (74-106); POTASSIUM 3.4 mmol/L (3.5-5.1); SODIUM SERUM 138 mmol/L (136-145); UREA NITROGEN, BLOOD 29 mg/dL (7-18)
[2018-10-11] MEDS: BUDESONIDE 0.25 MG/2 ML NEBU INH SCH ×2 (07:01→19:07)
--- NOTE | 2018-10-11 07:02 | NUR ---
RECIVED PT ON VENT WITH SETTINGS CHARTED BREATH SOUNDS PRESENT BILAT SCATTERD RALES SXN PT WITH MIN AMT OFF WHITE SECS TRACH SITE SECURE PT RESTING AMBU BAG BEDSIDE VENT PLUGGED INTO RED OUTLET WILL CONTINUE TO MONITOR PT ON VENT
[2018-10-11 07:09] LABS: MAGNESIUM 2.1 mg/dL (1.8-2.4); PHOSPHORUS 4.1 mg/dL (2.5-4.9)
--- NOTE | 2018-10-11 07:27 | NUR ---
ENDORSED PATIENT TO DAY SHIFT NURSE ALEXSANDER R/T AT BEDSIDE, UPDATE GIVEN.
[2018-10-11 07:28] LABS: BASOPHILS % (AUTO) 0.5 % (0.0-2.0); EOSINOPHILS # (AUTO) 0.1 K/uL (0-0.4); EOSINOPHILS % (AUTO) 3.1 % (0.0-4.0); HEMATOCRIT 29.9 % (36-52); HEMOGLOBIN 9.9 g/dL (12.0-18.0); LYMPHOCYTES # (AUTO) 0.6 K/uL (2.0-11.5); LYMPHOCYTES % (AUTO) 20.1 % (20.5-51.1); MEAN CORPUSCULAR HEMOGLOBIN 30 pg (27-31); MEAN CORPUSCULAR HGB CONC 33 g/dL (33-37); MEAN CORPUSCULAR VOLUME 89.6 fL (80-94); MONOCYTES # (AUTO) 0.3 K/uL (0.8-1.0); MONOCYTES % (AUTO) 8.3 % (1.7-9.3); NEUTROPHILS # (AUTO) 2.2 K/uL (1.8-7.7); PLATELET COUNT (AUTO) 166 K/uL (140-450); RED BLOOD CELL COUNT(AUTO) 3.34 MIL/uL (4.20-6.10); RED CELL DISTRIBUTION WIDTH 14.8 % (11.6-13.7); WHITE BLOOD COUNT (AUTO) 3.2 K/uL (4.8-10.8)
--- NOTE | 2018-10-11 07:30 | NUR ---
RECEIVED BEDSIDE REPORT FROM TERRAZZO TILE MAKER RN. PT IS SEDATED, RASS -3. AFEBRILE. FLACC 0. NSR ON MONITOR. S1+S2 HEARD. PULSES PALPABLE IN ALL EXTREMITIES. ETT TO VENT WITH SETTINGS A/C PC FIO2 30%, PINSP 16, RR 16, PEEP 5. BREATHING EVEN, UNLABORED, NO SOB NOTED. RHONCHI HEARD BILATERALLY, DIMINISHED LOWER LOBES.
--- NOTE | 2018-10-11 07:30 | NUR ---
ABDOMEN SOFT, ROUND, NONTENDER, W/ HYPOACTIVE BOWEL SOUNDS. NGT IN PLACE TO RIGHT NARE, PLACEMENT CONFIRMED. PT IS RECEIVING GLUCERNA 1.2 AT 65 ML/HR, WATER FLUSH 100 ML Q6H, RESIDUALS 200 ML NOTED, TUBE FEEDING HELD AT THIS TIME. PICC LINE TO RIGHT UPPER ARM AND PERIPHERAL IV G20 ASYMPTOMATIC, PATENT AND INTACT. PT IS ON VERSED DRIP AT 4 MG/HR AND FENTANYL DRIP AT 71 MCG/HR, D5NS TKO. SOTO CATH IN PLACE DRAINING CLEAR YELLOW URINE TO GRAVITY DRAINAGE BAG. SKIN IS DRY AND WARM TO TOUCH, LOTION APPLIED FOR DRY SKIN, SKIN TEARS ON BILATERAL ARMS NOTED, DRESSING CLEAN, DRY AND INTACT. BILATERAL HEELS PROTECTORS IN PLACE. HOB 30 DEGREES, BED IN LOWEST POSITION AND CALL LIGHT WITHIN REACH. WILL CONTINUE TO MONITOR. Addendum: 10/11/18 at 1812 by Suraj Bryan RN SKIN TEARS AND BLISTER TO RIGHT UPPER ARM
--- NOTE | 2018-10-11 08:00 | NUR ---
VERSED AND FENTANYL DRIPS TURNED OFF FOR SEDATION VACATION.
[2018-10-11] MEDS: DOCUSATE 100 MG/10 ML UDC GT SCH (08:12)
[2018-10-11] MEDS: ATORVASTATIN 20 MG TAB PO SCH (08:12)
[2018-10-11] MEDS: FUROSEMIDE 20 MG/2 ML VIAL IVP SCH (08:12)
[2018-10-11] MEDS: PANTOPRAZOLE 40 MG INJ VIAL IVP SCH (08:12)
[2018-10-11] MEDS: AMIODARONE 200 MG TAB PO SCH ×2 (08:13→20:03)
[2018-10-11] MEDS: METOPROLOL 25 MG TAB GT SCH ×2 (08:13→20:04)
[2018-10-11] MEDS: ASPIRIN 81 MG TAB.CHEW PO SCH (08:14)
--- NOTE | 2018-10-11 08:15 | NUR ---
DR. DANIEL AND RESIDENT GROUP IN TO SEE PT. WILL FOLLOW UP ON ORDERS.
[2018-10-11] MEDS: DORZOLAMIDE 2% OP 10 ML BTL OP SCH ×2 (08:16→20:04)
--- NOTE | 2018-10-11 08:40 | NUR ---
MEDICATIONS ADMINISTERED ORDERED. PT TOLERATED WELL. TUBE FEEDING RESIDUALS STILL 200 ML AT THIS TIME.
--- NOTE | 2018-10-11 09:22 | NUR ---
SWITCHED PT OVER TO CPAP 5 WITH PS 10 PT AWAKE WILL CONTINUE TO MONITOR PT ON CPAP SEE IF HE CAN TOLERATE
[2018-10-11] MEDS: KCL 20 MEQ/WATER INJ PREMIX 200 ML IV SCH ×2 (09:28→11:42)
--- NOTE | 2018-10-11 09:30 | NUR ---
PT IS ON CPAP, TACHYPNEIC W/ LABORED BREATHING, BUT FOLLOWS COMMANDS. SOFT WRIST RESTRAINTS NOT NEEDED AT THIS TIME. WILL CONTINUE TO MONITOR.
[2018-10-11] MEDS: hydrALAZINE 20 MG/ML VIAL IVP PRN (09:44)
--- NOTE | 2018-10-11 09:49 | NUR ---
pt placed back on pc dr hobbs aware
[2018-10-11] MEDS: MIDAZOLAM MDV 100 MG in NACL 0.9% 80 ML IV PRN ×3 (09:52→20:22)
--- NOTE | 2018-10-11 09:52 | NUR ---
RESUMED VERSED AND FENTANYL DRIPS PT UNABLE TO TOLERATE CPAP. PT IS TACHYPNEIC, RR HIGH 30'S AND LABORED BREATHING NOTED. WILL CONTINUE TO MONITOR.
--- NOTE | 2018-10-11 09:53 | NUR ---
pt unable to tolorate cpap
--- NOTE | 2018-10-11 10:16 | NUR ---
increased fi02 to .60 RN aware
--- NOTE | 2018-10-11 10:30 | NUR ---
RECEIVED A CALL FROM PT'S [id number], HORACIO. UPDATES GIVEN ON PT'S CONDITION.
[2018-10-11] MEDS: INSULIN LISPRO SLIDING SCALE 100 UNITS/ML VIAL SUBQ PRN ×3 (12:00→20:24)
--- NOTE | 2018-10-11 12:00 | NUR ---
VAP ORAL CARE GIVEN. TURNED AND REPOSITIONED FOR COMFORT AND OFF LOADING PRESSURE AREAS. VSS. PT NOT IN ANY DISTRESS AT THIS TIME. WILL CONTINUE TO MONITOR.
--- NOTE | 2018-10-11 13:33 | NUR ---
PT SEEN AND EXAMINED BY DR. EASTON. WILL FOLLOW UP ON ORDERS.
--- NOTE | 2018-10-11 13:38 | NUR ---
DECREASED FI02 TO .40 RN AWARE
--- NOTE | 2018-10-11 15:38 | NUR ---
decreasewd fi02 to 35
--- NOTE | 2018-10-11 15:50 | NUR ---
PT COUGHING, SUCTIONED SMALL AMOUNT TO WHITE SECRETIONS. VAP ORAL CARE GIVEN. PT IS AFEBRILE, VSS, FLACC -3. BREATHING EVEN AND UNLABORED. NO S/SX OF DISTRESS NOTED. SAFETY PRECAUTIONS IN PLACE. WILL CONTINUE TO MONITOR.
--- NOTE | 2018-10-11 17:18 | NUR ---
continued to monitorpt onvent breath sounds present bilat scatterd rales sxn pt with mod amt off white secs ett secure pt quiet sedated ambu bag at bedside vent plugged into red outlet
--- NOTE | 2018-10-11 17:43 | NUR ---
PT HAD MODERATE AMOUNT OF SOFT BROWN BOWEL MOVEMENT. CLEANED AND REPOSITIONED PT. TOLERATED WELL.
--- NOTE | 2018-10-11 18:45 | NUR ---
RESIDENT PHYSICIAN DR. TURK IN TO SEE AND EXAMINE PT. UPDATES GIVEN ON PT'S CONDITION. WILL FOLLOW UP ON ORDERS.
--- NOTE | 2018-10-11 19:06 | NUR ---
REPORT GIVEN TO TECHNICAL ADVISOR RN FOR CONTINUITY OF CARE. PT IS IN STABLE CONDITION.
--- NOTE | 2018-10-11 19:26 | NUR ---
RECEIVED BEDSIDE REPORT FROM DAY SHIFT ALVIN BELTRE. ON AIRBORNE PRECAUTION TO R/O TB. PATIENT ETT TO VENT 26 CM AT LIP LINE, SIZE 8, HOB AT 30 DEGREES, R/T AT BEDSIDE GIVING BREATHING TREATMENT. AC, FIO2 35%, RR 16, PEEP 5, P-MAX 40. LUNG SOUNDS CLEAR BILATERALLY. SR ON MONITOR, BP 154/90, HR 87, O2SAT 100% RR 16 EVEN AND NOT LABORED TEMP 98.6 F. ON FENTANYL INFUSING AT 34 MCG/HR AND VERSED AT 4 ML IN RIGHT UPPER ARM PICC LINE, DOUBLE LUMEN, RASS -3, DRESSING INTACT. D5/NS INFUSING AT 10 ML/HR TKO INFUSING IN RIGHT UPPER ARM PICC. GLUCERNIA 1.2 INFUSING AT 65 ML/HR WITH WATER FLUSH 100 ML Q6H IN RIGHT NARES, RESIDUALS AT [address] CATH IN PLACE DRAINING CLEAR YELLOW URINE. NOTED 3 SKIN TEARS/BLISTER ON RIGHT FA UNDER PICC, SKIN PINK, NOT BLEEDING, DRESSING CLEAN/DRY AND INTACT. NOTED BILATERAL FEET PEELING, NOT OPEN. SIDE RAILS UP, WILL CONTINUE TO CLOSELY MONITOR.
--- NOTE | 2018-10-11 19:26 | NUR ---
RECEIVED PATIENT ENDOTRACHEALLY INTUBATED WITH 8.0 ETT TO MECHANICAL VENTILATOR AT SETTINGS: AC/PC Pinsp 16, SET RR 16, +5, 35%. VENT CHECK DONE. VENT PLUGGED INTO RED OUTLET. VENT ALARMS ON AND AUDIBLE. AMBU BAG AT BEDSIDE. SCHEDULED BREATHING TREATMENTS ADMINISTERED. TOLERATED TREATMENTS WELL, NO ADVERSE SIDE EFFECTS. AIRWAY SECURE AND PATENT. SUCTIONED SMALL AMOUNT OF THICK, BROWN/BLOOD TINGED SECRETIONS. NO RESPIRATORY DISTRESS NOTED AT THIS TIME. WILL CONTINUE TO MONITOR.
--- NOTE | 2018-10-11 20:02 | NUR ---
DECREASED FEEDINGS TO 20 CC/HR
--- NOTE | 2018-10-11 20:03 | NUR ---
GAVE DUE MEDICATIONS, RESIDUALS AT 5 ML, BLOOD GLUCOSE 155 GAVE 2 UNITS.
[2018-10-11] MEDS: AZITHROMYCIN 500 MG in DEXTROSE 5% 250 ML IV SCH (20:04)
--- NOTE | 2018-10-11 20:22 | NUR ---
ADMINISTERED NEW BAG VERSED INFUSING AT 4 ML/HR. RASS-3, V/S STABLE. Addendum: 10/11/18 at 2101 by Clementine Colby RN INCREASED 5 ML/HR FOR RASS-4, PATIENT MOVING HAND TO ETT.
--- NOTE | 2018-10-11 20:30 | NUR ---
DR BRAVO AT BEDSIDE, GAVE UPDATE, STATED PATIENT DOES NO NEED AIRBORNE PRECAUTIONS ANYMORE.
--- NOTE | 2018-10-11 20:45 | NUR ---
PATIENT RASS -3, V/S STABLE.
--- NOTE | 2018-10-11 21:33 | NUR ---
VENT CHECK DONE. VENT ALARMS ON AND AUDIBLE. NO RESPIRATORY DISTRESS NOTED AT THIS TIME. WILL CONTINUE TO MONITOR.
--- NOTE | 2018-10-11 22:45 | NUR ---
RESIDUALS AT 0 ML INCREASED FEEDING TO 30 ML/HR
[2018-10-11] MEDS ORDERED: NACL 0.9% 500 ML IV SCH (23:00)
--- NOTE | 2018-10-11 23:00 | NUR ---
CALLED DR TURK TO ASK IF PATIENT CAN IVF NS INSTEAD OF DEXTROSE/NS SINCE PATIENT IS ON TUBE FEEDINGS AND NEEDED COVERAGE FOR BLOOD SUGAR OF 155. DR TURK STATED HE WILL CHANGE ORDER.
--- NOTE | 2018-10-11 23:11 | NUR ---
GAVE DUE ZOSYN AND STARTED NEW BAG NS 0.9% INFUSING AT 10 ML/HR
--- NOTE | 2018-10-11 23:32 | NUR ---
VENT CHECK DONE, ALARMS ON AND AUDIBLE. SCHEDULED BREATHING TREATMENT ADMINISTERED. TOLERATED TX WELL, NO ADVERSE SIDE EFFECTS. NO RESPIRATORY DISTRESS NOTED AT THIS TIME. WILL CONTINUE TO MONITOR.
--- NOTE | 2018-10-11 23:50 | NUR ---
PATIENT LIFTING RIGHT ARM TOWARDS ETT TUBE. INCREASED FENTANYL TO 68 MCG/HR. V/S STABLE.
[2018-10-12] VITALS (53 sets, daily range): BP systolic 101–199; BP diastolic 56–172
--- NOTE | 2018-10-12 | NUR ---
ORAL CARE PROVIDED, SCANT WHITE SECRETIONS NOTED. RASS-3, V/S STABLE.
--- NOTE | 2018-10-12 02:00 | NUR ---
PATIENT REPOSITIONED FOR COMFORT, RASS-3, V/S STABLE
[2018-10-12] MEDS: ALBUTEROL SULFATE/IPRATROPIU 3 ML SOL IH SCH ×6 (03:31→22:41)
--- NOTE | 2018-10-12 03:41 | NUR ---
SPOKE WITH DR BURLESON IF WANTS TO CONTINUE SCHEDULED ZOSYN. DR BURLESON STATED HE WILL RENEW ORDER.
--- NOTE | 2018-10-12 03:42 | NUR ---
VENT CHECK DONE. VENT ALARMS ON AND AUDIBLE. SCHEDULED BREATHING TREATMENT ADMINISTERED. TOLERATED TX WELL, NO ADVERSE SIDE EFFECTS. NO RESPIRATORY DISTRESS NOTED AT THIS TIME. WILL CONTINUE TO MONITOR.
--- NOTE | 2018-10-12 04:00 | NUR ---
CLEANED PATIENT, NO BM, URINE LEAKING FROM SOTO CATH, ASPIRATED 9 ML FROM SOTO CATH BALLOON. VIOLETA CARE PROVIDED, REPOSITIONED FOR COMFORT. ORAL CARE PROVIDED, SCANT WHITE SECRETIONS NOTED. SOTO CARE PROVIDED. EMPTIED 400 ML CLEAR YELLOW URINE FROM CATHETER. TUBE FEEDING RESIDUALS AT 10 ML. INCREASED FEEDING TO 40 ML/HR. RASS-3, V/S STABLE.
[2018-10-12] MEDS ORDERED: PIPER/TAZO 3.375GM/D5W PREMIX 50 ML IV SCH (05:00)
--- NOTE | 2018-10-12 05:08 | NUR ---
GAVE SCHEDULED ZOSYN. BENNY -3, V/S STABLE
--- NOTE | 2018-10-12 05:39 | NUR ---
VENT CHECK DONE. VENT ALARMS ON AND AUDIBLE. AMBU BAG AT BEDSIDE. NO RESPIRATORY DISTRESS NOTED AT THIS TIME. WILL CONTINUE TO MONITOR.
[2018-10-12 06:16] LABS: BASOPHILS % (AUTO) 0.5 % (0.0-2.0); EOSINOPHILS # (AUTO) 0.1 K/uL (0-0.4); EOSINOPHILS % (AUTO) 2.9 % (0.0-4.0); HEMATOCRIT 29.1 % (36-52); HEMOGLOBIN 9.5 g/dL (12.0-18.0); LYMPHOCYTES # (AUTO) 0.6 K/uL (2.0-11.5); LYMPHOCYTES % (AUTO) 18.3 % (20.5-51.1); MEAN CORPUSCULAR HEMOGLOBIN 29 pg (27-31); MEAN CORPUSCULAR HGB CONC 33 g/dL (33-37); MEAN CORPUSCULAR VOLUME 89.3 fL (80-94); MONOCYTES # (AUTO) 0.3 K/uL (0.8-1.0); MONOCYTES % (AUTO) 9.5 % (1.7-9.3); NEUTROPHILS # (AUTO) 2.3 K/uL (1.8-7.7); NEUTROPHILS % (AUTO) 68.8 % (42.2-75.2); PLATELET COUNT (AUTO) 183 K/uL (140-450); RED BLOOD CELL COUNT(AUTO) 3.26 MIL/uL (4.20-6.10); RED CELL DISTRIBUTION WIDTH 14.9 % (11.6-13.7); WHITE BLOOD COUNT (AUTO) 3.4 K/uL (4.8-10.8)
[2018-10-12 06:30] LABS: ANION GAP 10.2 (8-16); CARBON DIOXIDE 27.5 mmol/L (21-32); CHLORIDE 104 mmol/L (98-107); CREATININE 1.3 mg/dL (0.7-1.3); GLUCOSE 134 mg/dL (74-106); POTASSIUM 3.7 mmol/L (3.5-5.1); SODIUM SERUM 138 mmol/L (136-145); UREA NITROGEN, BLOOD 33 mg/dL (7-18)
--- NOTE | 2018-10-12 06:30 | NUR ---
DR CASTRO AT BEDSIDE MADE ROUNDS, UPDATE GIVEN, TOLD WILL REPEAT SEDATION VACATION STARTING AT 0800 AND TRY TO WEAN FROM VENT.
[2018-10-12 06:37] LABS: MAGNESIUM 2.1 mg/dL (1.8-2.4); PHOSPHORUS 3.9 mg/dL (2.5-4.9)
--- NOTE | 2018-10-12 06:45 | NUR ---
BLOOD GLUCOSE 142 NO COVERAGE NEEDED. INCREASED FEEDING TO 50 CC, 0 ML RESIDUALS NOTED
[2018-10-12] MEDS: BLOOD GLUCOSE MONITORING 1 DEV DEV FS SCH ×4 (06:59→20:41)
--- NOTE | 2018-10-12 07:05 | NUR ---
ENDORSED PATIENT TO DAY SHIFT NURSE NANNETTE. R/T AT BEDSIDE DOING ROUNDS.
[2018-10-12] MEDS: BUDESONIDE 0.25 MG/2 ML NEBU INH SCH ×2 (07:13→19:02)
--- NOTE | 2018-10-12 07:30 | NUR ---
RECEIVED REPORT OF PATIENT FROM PM NURSE ZHU. LUNG SOUNDS CLEAR AND PATIENT IS TOLERATING VENT CALMLY. ET TUBE SIZE 8 AND 26 AT GUM LINE. VENT SETTINGS: FI02: 30, ASSIST CONTROL PRESSURE CONTROL:PINSP 16 PEEP: 5,RATE 16 NSR ON CAT SCANNER OPERATOR. PERRLA PRESENT. NG TUBE PATENT WITH NO RESIDUALS. PICC LINE DOUBLE LUMEN INSERTED ON 10/07/18 IN UPPER RIGHT ARM. 3 MINOR SKIN TEARS ON RIGHT ARM FROM REMOVAL OF TAPE FROM PREVIOUS SHIFTS. REST OF SKIN DRY, WARM, AND INTACT. BILATERAL HANDS SWOLLEN AND ELEVATED ON PILLOWS. SOTO TO GRAVITY SIZE MACEDONIAN 16 WITH YELLOW CLEAR URINE IN BAG. BED LEFT IN LOW POSITION AND CALL LIGHT IN REACH
--- NOTE | 2018-10-12 07:31 | NUR ---
RECEIVED PT ON VENT WITH SETTINGS CHARTED BREATH SOUNDS PRESENT BILAT CLEAR SXN PT WITH MIN TO MOD AMOUNT OFF WHITE SECS EET SECURE AMBU BAG AT BEDSIDE VENT PLUGGED INTO RED OUTLET WILL CONTINUE TO MONITOR PT ON VENT
--- NOTE | 2018-10-12 08:03 | NUR ---
MIDAZOLAM AND FENTANYL DRIP TURNED OFF FOR SEDATION VACATION.
[2018-10-12] MEDS: ASPIRIN 81 MG TAB.CHEW PO SCH (08:44)
[2018-10-12] MEDS: DOCUSATE 100 MG/10 ML UDC GT SCH (08:49)
[2018-10-12] MEDS: ATORVASTATIN 20 MG TAB PO SCH (08:51)
[2018-10-12] MEDS: METOPROLOL 25 MG TAB GT SCH ×2 (08:57→20:40)
[2018-10-12] MEDS: AMIODARONE 200 MG TAB PO SCH ×2 (09:00→20:41)
--- NOTE | 2018-10-12 09:00 | NUR ---
PLACED PT ON CPAP 5 PS 10 FOR WEANING WILL CONTINUE TO MONITOR PT TO SEE IF HE CAN TOLERATE CPAP
[2018-10-12] MEDS: FUROSEMIDE 20 MG/2 ML VIAL IVP SCH (09:02)
[2018-10-12] MEDS: PANTOPRAZOLE 40 MG INJ VIAL IVP SCH (09:05)
[2018-10-12] MEDS: DORZOLAMIDE 2% OP 10 ML BTL OP SCH ×2 (09:35→20:43)
--- NOTE | 2018-10-12 10:05 | NUR ---
SCREEN FOR LOW HAI SCALE AT RISK, PRESSURE INJURY PREVENTION INTERVENTIONS IN PLACE. SKIN TEARS TREATMENT DONE WITH VESATEL DRESSING IN PLACE, WILL CONTINUE TO MONITOR. -TURN AND REPOSITION PATIENT Q 2H -ASSESS AND MONITOR SKIN CONDITION DURING POSITION CHANGE -OFFLOAD BILATERAL HEELS BY PLACING PILLOWS UNDER CALVES AT ALL TIMES, UNLESS OTHERWISE CONTRAINDICATED -PRESSURE REDISTRIBUTION BY PLACING PILLOWS AND OFFLOADING SACRALCOCCYX -KEEP SKIN CLEAN AND DRY AT ALL TIMES.
--- NOTE | 2018-10-12 11:00 | NUR ---
PT SUCTIONED FREQUENTLY WITH WHITE SECRETIONS.
--- NOTE | 2018-10-12 11:02 | NUR ---
PT EXTUBATED PER DR HALL PLACED ON HIGH FLOW AT .34 FIO2 FLOW OF 45 PT AWAKE ALERT BREATH SOUNDS PRESENT BILAT SEEMS TO BE FAISAL WELL AT THIS POINT SPO2 .95 WILL CONTINUE TO MONITOR PT
[2018-10-12] MEDS: hydrALAZINE 20 MG/ML VIAL IVP PRN ×2 (11:20→16:29)
[2018-10-12] MEDS: INSULIN LISPRO SLIDING SCALE 100 UNITS/ML VIAL SUBQ PRN ×2 (11:35→16:44)
[2018-10-12] MEDS: PIPERACILLIN/TAZOBACTAM 3.375 GM in DEXTROSE 5% 50 ML IV SCH ×2 (12:45→20:40)
--- NOTE | 2018-10-12 15:39 | NUR ---
PATIENT PULLED OUT NG TUBE. DR. CASTRO WAS NOTIFIED AND ORDERS WERE RECEIVED FROM HIM.
--- NOTE | 2018-10-12 17:07 | NUR ---
* ST NOTE * Bedside dysphagia and oral mechanism exam attempted at this time by clinician. Pt however s/p extubation today, 10/12 @ 11:02 AM. As per protocol, it is recommended swallow evaluation be placed on hold until 24 hours s/p extubation to r/o false negative results d/t any potential temporary vocal fold (VF) trauma caused during extubation. Thus clinician will follow up for swallow evaluation during next authorized visit. ST to ff x1 in next 1-3 days to re-attempt Bedside Dysphagia Exam. PVE
--- NOTE | 2018-10-12 17:52 | NUR ---
DR. CASTRO WAS NOTIFIED THAT PATIENT'S BP WAS STILL ELEVATED (193/95) AFTER GIVING HYDRALAZINE. DR. CASTRO REPLIED BY SAYING HE WILL ENTER A NEW ORDER FOR THE ELEVATED BP.
[2018-10-12] MEDS ORDERED: LABETALOL 100 MG/20 ML VIAL IV SCH (18:15)
--- NOTE | 2018-10-12 18:50 | NUR ---
FAMILY WAS UPDATE BY MD ON PATIENTS CONDITION
--- NOTE | 2018-10-12 19:23 | NUR ---
REPORT GIVEN TO PM NURSE BRENDA RN FOR CONTINUITY OF CARE
[2018-10-12] MEDS: DEXT 5% /NACL 0.9% 1,000 ML IV SCH (19:36)
--- NOTE | 2018-10-12 19:40 | NUR ---
RECEIVED BEDSIDE REPORT FROM MORNING SHIFT RNCHUY FOR CONTINUITY OF CARE. PT IS AAOX3. AWAKE, LETHARGIC WITH GENERALIZED WEAKNESS, BUT ABLE TO MAKE NEEDS KNOWN. ON HIGH FLOW OXYGEN AT 30%, LUNG SOUNDS COARSE ON UPPER/ LOWER BILATERAL LOBES. PT ABLE TO PROVIDE ORAL SUCTIONING TO HIMESELF, WHITE/PINK TINGED SPUTUM NOTED. 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 BP 143/83, RR 25, SATING 95%, HR 78, TEMP 97.8. PT NPO EXCEPT MEDS, NO NGT IN PLACE. DENIES PAIN/NAUSEA AT THIS TIME. ABDOMEN IS SOFT/ROUND/NONTENDER. SOTO IN PLACE, URINE IS CLEAR/YELLOW. PT HAS GRETA PICC LINE INFUSING D5NS AT 50CC/HR, ASYMPTOMATIC, PATENT, AND SALINE FLUSHED WITH BLOOD RETURN OBSERVED. SKIN IS NON INTACT, SKIN TEARS ON GRETA ARM COVERED WITH VERSATEL AND DRESSING IS DRY/INTACT. PT HAS DRY/ROUGH FLAKY SKIN ON BILATERAL FEET. HOB ELEVATED ABOVE 30 DEG, SIDE RAILS UP X4, STANDARD PRECAUTIONS. CALL LIGHT WITHIN REACH, LEGS ELEVATED WITH HEEL PROTECTORS ON.
[2018-10-12] MEDS: AZITHROMYCIN 500 MG in DEXTROSE 5% 250 ML IV SCH (21:04)
--- NOTE | 2018-10-12 21:19 | NUR ---
ASSESSED PT ABILITY TO SWALLOW WITH ICE CHIPS AND ADMINISTERED CRUSHED PO MEDS WITH APPLESAUCE, PT TOLERATED WELL. NO INSULIN COVERAGE GIVEN AT THIS TIME. PT REPOSITIONED IN BED.
--- NOTE | 2018-10-12 22:54 | NUR ---
PT C/O THAT IT IS "HARD TO BREATHE", VSS, SATING 96% AND RR=22-24. CALLED RT SHERIN AT BEDSIDE ADMINISTERING BREATHING TREATMENT AT THIS TIME. PT \\SUCTIONING HIS MOUTH. CALLED DR. ARREOLA UPDATED ON PT CONDTION AND POTASSIUM CURRENTLY AT 3.4, TO UPDATE WITH NEW ORDERS.
[2018-10-12] MEDS ORDERED: POTASSIUM CHLORIDE 40 MEQ, LIDOCAINE MPF 1% - 5 mL VIAL 25 MG in NACL 0.9% 250 ML IV ONE (22:55)
[2018-10-12] MEDS ORDERED: KCL 20 MEQ/WATER INJ PREMIX 200 ML IV ONE (23:30)
[2018-10-13] VITALS (15 sets, daily range): BP systolic 133–164; BP diastolic 54–99
[2018-10-13] MEDS: ALBUTEROL SULFATE/IPRATROPIU 3 ML SOL IH PRN (01:15)
[2018-10-13] MEDS: hydrALAZINE 20 MG/ML VIAL IVP PRN ×2 (01:32→18:15)
--- NOTE | 2018-10-13 01:38 | NUR ---
PT WAS DESATING TO 80%, RT SHERIN AD BEDSIDE TO ADMINISTER BREATHING TREATMENT. PT CURRENTLY ON 40% HIGH FLOW OXYGEN. PT BP WAS INCREASED TO SBP'S AT 190, HYDRALAZINE GIVEN PER ORDER. DR MILLER WAS IN TO SEE PATIENT, UPDATED ON PT CONDITIONS. PT WAKE, ABLER TO RESPOND TO COMMANDS, LUNG SOUNDS COARSE/CRACKLES ON BILATERAL LOWER LOBES.
--- NOTE | 2018-10-13 01:43 | NUR ---
RAD AT BEDSIDE TO COMPLETED CHEST XRAY.
--- NOTE | 2018-10-13 03:16 | NUR ---
ENCOURAGED PT TO TRY AND GO SLEEP YET CONTINUE TO COUGH UP SPUTUM WHEN POSSIBLE. PT VERBALLY EXPRESSED THAT HE IS AFRAID THAT IF HE SLEEPS THAT HE WILL . PT WAS INFORMED OF PLAN OF CARE AND STAFF THAT IS CURRENTLY ASSISTING HIM. PT HAD 2 ATTEMPTS FOR BOWEL MOVEMENT, YET NO BM AT THIS TIME. PT REPOSITIONED AND PILLOW SUPPORT PROVIDED. D5NS INFUSING AT 20CC/HR PER ORDER.
[2018-10-13] MEDS: ALBUTEROL SULFATE/IPRATROPIU 3 ML SOL IH SCH ×6 (03:24→23:15)
--- NOTE | 2018-10-13 03:33 | NUR ---
CALLED PHARMACY, SPOKE TO ERIC WILL VERIFY ORDERS. RT SHERIN AT BEDSIDE TO ADMINISTER BREATHING TREATMENT. PT AWAKE/ALERT.
[2018-10-13] MEDS ORDERED: ENALAPRILAT 2.5 MG/2 ML VIAL IVP SCH (04:00)
[2018-10-13] MEDS: PIPERACILLIN/TAZOBACTAM 3.375 GM in DEXTROSE 5% 50 ML IV SCH ×3 (04:35→20:20)
[2018-10-13 05:23] LABS: BASOPHILS % (AUTO) 0.6 % (0.0-2.0); EOSINOPHILS % (AUTO) 0.9 % (0.0-4.0); LYMPHOCYTES # (AUTO) 0.6 K/uL (2.0-11.5); LYMPHOCYTES % (AUTO) 11.6 % (20.5-51.1); MEAN CORPUSCULAR HEMOGLOBIN 30 pg (27-31); MEAN CORPUSCULAR HGB CONC 33 g/dL (33-37); MEAN CORPUSCULAR VOLUME 88.7 fL (80-94); MONOCYTES # (AUTO) 0.5 K/uL (0.8-1.0); MONOCYTES % (AUTO) 11.2 % (1.7-9.3); NEUTROPHILS # (AUTO) 3.6 K/uL (1.8-7.7); NEUTROPHILS % (AUTO) 75.7 % (42.2-75.2); PLATELET COUNT (AUTO) 217 K/uL (140-450); RED BLOOD CELL COUNT(AUTO) 3.72 MIL/uL (4.20-6.10); RED CELL DISTRIBUTION WIDTH 14.5 % (11.6-13.7); WHITE BLOOD COUNT (AUTO) 4.8 K/uL (4.8-10.8)
--- NOTE | 2018-10-13 05:32 | NUR ---
AM CARES PROVIDED TO PT, BP 143/83 AT THIS TIME VASOTEC EFFECTIVE. HOB ELEVATED ABOVE 45 DEG, ORAL SUCTIONIG PROVIDED INTERMITTENT COUGH WITH MINIMAL SPUTUM OBSERVED. SOTO CATH CARE PROVIDED AND PT REPOSITIONED.
[2018-10-13 05:48] LABS: ANION GAP 13.1 (8-16); CARBON DIOXIDE 25.4 mmol/L (21-32); CHLORIDE 105 mmol/L (98-107); CREATININE 1.3 mg/dL (0.7-1.3); GLUCOSE 177 mg/dL (74-106); POTASSIUM 3.5 mmol/L (3.5-5.1); SODIUM SERUM 140 mmol/L (136-145); UREA NITROGEN, BLOOD 28 mg/dL (7-18)
[2018-10-13 05:52] LABS: ALBUMIN 2.2 g/dL (3.4-5.0); MAGNESIUM 1.9 mg/dL (1.8-2.4)
[2018-10-13] MEDS ORDERED: HYDROcodone/APAP 7.5/325 MG 1 TAB PO PRN (06:50)
--- NOTE | 2018-10-13 07:07 | NUR ---
RECEIVED BEDSIDE REPORT FROM SALES DEVELOPMENT COORDINATOR RN BRENDA, FOR CONTINUITY OF CARE. PATIENT IS AAOX4, ABLE TO MAKE NEEDS KNOWN AND FOLLOWS COMMANDS. PATIENT'S SKIN IS WARM, DRY, AFEBRILE, HE HAS SKIN TEARS TO RUE. PATIENT HAS PICC LINE TO GRETA, PATENT AND ASYMPTOMATIC. PATIENT IS ON HIGH FLOW OXYGEN AT 40%, O2 SAT IS 96, BREATHING EVEN AND UNLABORED. COARSE LUNG SOUNDS HEARD BILATERALLY. PATIENT IS SR ON MONITOR, BP STABLE, DENIES PAIN AT THIS TIME. PATIENT IS NPO, WAITING FOR SWALLOW EVAL TODAY PER SALES DEVELOPMENT COORDINATOR RN. HE HAS SOTO CATHETER IN PLACE TO CLEAR YELLOW URINE. HOB IS 45 DEGREES, BED LOCKED IN LOW POSITION, SIDE RAILS UP. NO SIGNS OF DISTRESS AT THIS TIME. WILL CONTINUE TO MONITOR
--- NOTE | 2018-10-13 07:19 | NUR ---
PATIENT'S BLOOD GLUCOSE IS 157, DR. REVELES STATES DUE TO PATIENT BEING NPO TO HOLD INSULIN
--- NOTE | 2018-10-13 07:22 | NUR ---
DR. SANCHEZ AND DR. REVELES AT BEDSIDE, UPDATED ON PATIENT'S CONDITION. WILL FOLLOW UP ON ANY ORDERS.
[2018-10-13] MEDS: BLOOD GLUCOSE MONITORING 1 DEV DEV FS SCH ×4 (07:43→20:59)
[2018-10-13] MEDS: BUDESONIDE 0.25 MG/2 ML NEBU INH SCH ×2 (07:46→19:22)
--- NOTE | 2018-10-13 08:06 | NUR ---
RECEIVED PT ON HFNC 50LPM, 40%, SPO2 96%. PT AWAKE AND ALERT. ADEQUATE WATER IN HFNC SYSTEM. HEATER SET AT 31.2 C. PT SKIN INTACT AT THIS TIME. DECREASED FIO2 TO 33% AND FLOW TO 40, SPO2 95%. RN AWARE. WILL CONTINUE TO MONITOR PT.
[2018-10-13] MEDS: FUROSEMIDE 20 MG/2 ML VIAL IVP SCH (08:31)
[2018-10-13] MEDS: PANTOPRAZOLE 40 MG INJ VIAL IVP SCH (08:31)
[2018-10-13] MEDS: DOCUSATE 100 MG/10 ML UDC GT SCH (08:31)
[2018-10-13] MEDS: METOPROLOL 50 MG TAB PO SCH ×2 (08:32→20:20)
[2018-10-13] MEDS: LISINOPRIL 10 MG TAB PO SCH (08:36)
[2018-10-13] MEDS: ATORVASTATIN 20 MG TAB PO SCH (08:36)
[2018-10-13] MEDS: AMIODARONE 200 MG TAB PO SCH ×2 (08:37→20:20)
[2018-10-13] MEDS: ASPIRIN 81 MG TAB.CHEW PO SCH (08:37)
[2018-10-13] MEDS: DORZOLAMIDE 2% OP 10 ML BTL OP SCH ×2 (08:37→20:21)
--- NOTE | 2018-10-13 08:44 | NUR ---
PATIENT HAD 1 SMALL SOFT BROWN BM.
[2018-10-13] MEDS ORDERED: LISINOPRIL 10 MG TAB PO SCH (09:00)
[2018-10-13] MEDS: ACETYLCYSTEINE 10% (100 MG/ML) 100 MG/ML VIAL INH SCH (09:00)
[2018-10-13] MEDS ORDERED: METOPROLOL 25 MG TAB PO SCH (09:00)
--- NOTE | 2018-10-13 11:17 | NUR ---
PATIENT STATES HE WOULD LIKED TO BE CLEANED, GAVE PATIENT SPONGE BATH. PATIENT TOLERATED WELL.
--- NOTE | 2018-10-13 12:18 | NUR ---
ADMINISTERED IV ABX, PATIENT TOLERATING WELL
--- NOTE | 2018-10-13 14:20 | NUR ---
10/13/18 RD FOLLOW UP ASSESSMENT COMPLETED PLEASE REFER TO NUTRITION ASSESSMENT UNDER CARE ACTIVITY FOR ESTIMATED NUTRITIONAL NEEDS. RD RECOMMENDATIONS: 1. CONSIDER CCHO 60 GM DIET WITH TEXTURE RECOMMENDATIONS PER HAND ALTERATIONS SEAMSTRESS. 2. IF PT WILL NEED TUBE FEEDING, CONSIDER GLUCERNA 1.2 TO 65ML/HR, FWF:100ML Q 6HR -THIS PROVIDES 1872KCAL, 110 GM PROTEIN AND 1660ML TOTAL FLUID DAILY. THIS MEETS 92% CALORIC NEEDS AND 100% PROTEIN NEEDS. 3. RD WILL F/U 2-3 DAYS; HIGH RISK. DARRION WHATLEY, RD
--- NOTE | 2018-10-13 15:05 | NUR ---
DR. BRAVO IN TO SEE AND EXAMINE PATIENT, UPDATED ON PATIENT'S CONDITION. NO NEW ORDERS RECEIVED.
--- NOTE | 2018-10-13 17:03 | NUR ---
CHANGED PATIENT'S DRESSING TO GRETA SKIN TEAR, PATIENT TOLERATED WELL.
--- NOTE | 2018-10-13 17:18 | NUR ---
PATIENT HAD 1 SMALL SOFT BROWN BM, PATIENT CLEANED AND REPOSITIONED. NO SIGNS OF DISTRESS NOTED
--- NOTE | 2018-10-13 17:38 | NUR ---
PATIENT'S FAMILY AT BEDSIDE, UPDATED ON PATIENT'S CONDITION.
--- NOTE | 2018-10-13 18:22 | NUR ---
PATIENT'S BP WAS 166/79, ADMINISTERED HYDRALAZINE 5MG PRN IVP. PATIENT TOLERATED WELL, WILL CONTINUE TO MONITOR
--- NOTE | 2018-10-13 18:41 | NUR ---
DR. THOMAS IN TO SEE AND EXAMINE PATIENT, WILL FOLLOW UP ON ANY ORDERS.
[2018-10-13] MEDS: DEXT 5% /NACL 0.9% 1,000 ML IV SCH (18:42)
--- NOTE | 2018-10-13 19:05 | NUR ---
RECEIVED REPORT FROM DAYSHIFT NURSE AT PATIENT'S BEDSIDE. PATIENT RESTING WELL IN BED, NO DISTRESS NOTED. WILL FOLLOW UP.
--- NOTE | 2018-10-13 19:40 | NUR ---
RECEIVED PATIENT SITTING UPRIGHT IN BED, AWAKE, ALERTX4. DENIES PAIN. SKIN WARM AND DRY VITAL SIGNS STABLE-TEMP 97.7, HR-75, BP-145/74, RR-22, O2SATS 91%. PATIENT IS ON HIGH FLOW @ 32% O2 & 40L/MIN. LUNG SOUNDS DIMINISHED AT BASES, CLEAR IN UPPER LOBES. S1S2. BOWEL SOUNDS ACTIVE, ABDOMEN SOFT AND NONTENDER. PT IS NPO EXCEPT MEDS. PT HAS A PICC LINE RIGHT UPPER ARM, D5NS @ 20ML/HR. SOTO CATH IN PLACE, PINK TINGED URINE, YELLOW. BED LOCKED, SIDERAILS UP, CALL LIGHT WITHIN REACH.
[2018-10-13] MEDS: AZITHROMYCIN 500 MG in DEXTROSE 5% 250 ML IV SCH (20:20)
--- NOTE | 2018-10-13 21:25 | NUR ---
CALLED RT FOR PATIENT'S COMPLAINT OF SOB, PATIENT REQUESTING MORE OXYGEN.O2 SATS-83-88%. RT INCREASED FLOW TO 45L/MIN. WILL CONTINUE TO MONITOR.
--- NOTE | 2018-10-13 21:38 | NUR ---
IN TO SEE PATIENT, PT COMPLAINS OF MORE SOB, PER , SWITCH TO BIPAP-/, IF PATIENT TOLERATES WELL, SWITCH BACK TO HIGH FLOW. WILL CARRY OUT
[2018-10-13] MEDS ORDERED: methylPREDNISolone SS 125 MG/2 ML VIAL IVP SCH (22:00)
--- NOTE | 2018-10-13 22:00 | NUR ---
BIPAP 10/5 STARTED, SETTINGS: O2-30% RATE 8. PT SATURATING AT 94%.
--- NOTE | 2018-10-13 22:30 | NUR ---
ADMINISTERED SOLUMEDROL PER DR. EASTON's NEW ORDER. PATIENT RESTING, NO COMPLAINTS AT THIS TIME. CONTINUE CLOSE MONITORING.
[2018-10-14] VITALS (18 sets, daily range): BP systolic 124–157; BP diastolic 62–97
--- NOTE | 2018-10-14 00:15 | NUR ---
PT AT BED RESTING, EYES CLOSED, BREATHING REGULARLY, VS WNL. WILL CONTINUE TO MONITOR Addendum: 10/15/18 at 0412 by Charles Calle RN ERROR IN CHARTING
--- NOTE | 2018-10-14 00:20 | NUR ---
REPOSITIONED PATIENT FOR COMFORT AND OFFSET PRESSURE AREAS. PATIENT DENIES PAIN AND DENIES SOB, PATIENT VERBALIZES THAT HIS BREATHING EFFORTS HAS IMPROVED. PATIENT RESTING WELL IN BED.
--- NOTE | 2018-10-14 01:50 | NUR ---
PATIENTS WOUNDS/SKIN TEARS ON RIGHT ARM ARE ASSESSED. DRESSINGS ARE INTACT. NO COMPLAINTS OF PAIN OR SOB.NO CHANGE IN LOC, PATIENT STATES THE BIPAP MASK MAKES IT HARD FOR HIM TO SLEEP. REPOSITIONED. PT TOLERATED WELL.
--- NOTE | 2018-10-14 03:16 | NUR ---
PATIENT DENIES PAIN, REPORTS MASK IS UNCOMFORTABLE AND IS PREVENTING PATIENT FROM SLEEPING. REPOSITIONED PATIENT FOR COMFORT. PATIENT REFUSES SPONGE BATH/ORAL CARE. VITAL SIGNS ARE STABLE, PATIENT'S O2 IS 95% AND RESPIRATIONS ARE DOWN TO 22. WILL ATTEMPT ORAL CARE/SPONGE BATH AT A LATER TIME.
[2018-10-14] MEDS: ALBUTEROL SULFATE/IPRATROPIU 3 ML SOL IH SCH ×6 (03:20→23:53)
--- NOTE | 2018-10-14 03:55 | NUR ---
PATIENT COMPLAINING THAT NO AIR IS COMING OUT OF THE MASK, RT IS MADE AWARE. RT REASSESSED SETTINGS, CONFIRMED OK. RT READJUSTED MASK AND CHECKED SEAL. ASKED PATIENT IF I CAN PROVIDE ORAL CARE WHILE MASK IS OFF, HE REFUSES ORAL CARE AND BED BATH AGAIN.
[2018-10-14] MEDS: PIPERACILLIN/TAZOBACTAM 3.375 GM in DEXTROSE 5% 50 ML IV SCH ×3 (04:39→20:26)
--- NOTE | 2018-10-14 05:20 | NUR ---
PICC LINES ARE FLUSHED, PATENT, AND INTACT. LABS ARE DRAWN. PATIENT IS ALLOWING BED BATH AND TO CLEAN AND CHANGE HIM. PATIENT'S 4TH BOWEL MOVEMENT FOR THE SHIFT-BROWN AND SOFT. PATIENT REQUESTS LOTION FOR LOWER EXTREMITIES, DRY SKIN NOTED.ORAL CARE PROVIDED. PATIENT TOLERATED WELL. BIPAP MASK IS REAPPLIED AND SEAL IS OK BY RT JARAD. WILL CONTINUE TO MONITOR.
[2018-10-14 05:28] LABS: BASOPHILS % (AUTO) 0.2 % (0.0-2.0); EOSINOPHILS % (AUTO) 0.1 % (0.0-4.0); HEMATOCRIT 32.7 % (36-52); HEMOGLOBIN 10.7 g/dL (12.0-18.0); LYMPHOCYTES # (AUTO) 0.3 K/uL (2.0-11.5); MEAN CORPUSCULAR HEMOGLOBIN 29 pg (27-31); MEAN CORPUSCULAR HGB CONC 33 g/dL (33-37); MONOCYTES # (AUTO) 0.1 K/uL (0.8-1.0); MONOCYTES % (AUTO) 2.7 % (1.7-9.3); NEUTROPHILS # (AUTO) 4.3 K/uL (1.8-7.7); PLATELET COUNT (AUTO) 246 K/uL (140-450); RED BLOOD CELL COUNT(AUTO) 3.68 MIL/uL (4.20-6.10); RED CELL DISTRIBUTION WIDTH 14.6 % (11.6-13.7); WHITE BLOOD COUNT (AUTO) 4.8 K/uL (4.8-10.8)
[2018-10-14 05:45] LABS: ANION GAP 16.5 (8-16); CARBON DIOXIDE 25.2 mmol/L (21-32); CHLORIDE 105 mmol/L (98-107); GLUCOSE 199 mg/dL (74-106); POTASSIUM 3.7 mmol/L (3.5-5.1); SODIUM SERUM 143 mmol/L (136-145); UREA NITROGEN, BLOOD 29 mg/dL (7-18)
[2018-10-14 05:46] LABS: CREATININE 1.5 mg/dL (0.7-1.3)
--- NOTE | 2018-10-14 06:30 | NUR ---
IN TO ASSESS PATIENT. OK TO CONTINUE TO HOLD BLOOD THINNERS DUE TO BLOOD TRACE IN SOTO BAG. DR MADE AWARE THAT PATIENT HAS NOT SLEPT ALL NIGHT, WILL CARRY OUT ANY NEW ORDERS. PATIENT CALM IN BED BUT RESTLESS, VITAL SIGNS WITHIN NORMAL LIMITS, ANOx4.
--- NOTE | 2018-10-14 07:01 | NUR ---
RECEIVED BEDSIDE REPORT FROM CREDIT DIRECTOR RN SHERIN, FOR CONTINUITY OF CARE. PATIENT IS AAOX4, ABLE TO MAKE NEEDS KNOWN AND FOLLOWS COMMANDS. PATIENT'S SKIN IS WARM, DRY, AFEBRILE, HE HAS SKIN TEARS TO RUE. PATIENT HAS PICC LINE TO GRETA, PATENT AND ASYMPTOMATIC. PATIENT IS BIPAP, O2 SAT IS 96, BREATHING EVEN AND UNLABORED. COARSE LUNG SOUNDS HEARD BILATERALLY. PATIENT IS SR ON MONITOR, BP STABLE, DENIES PAIN AT THIS TIME. HE HAS SOTO CATHETER IN PLACE TO CLEAR YELLOW URINE. HOB IS 45 DEGREES, BED LOCKED IN LOW POSITION, SIDE RAILS UP. NO SIGNS OF DISTRESS AT THIS TIME. WILL CONTINUE TO MONITOR
--- NOTE | 2018-10-14 07:20 | NUR ---
REPORT GIVEN TO DAYSHIFT NURSE FOR CONTINUITY OF CARE.
--- NOTE | 2018-10-14 07:20 | NUR ---
DR. SANCHEZ IN TO SEE AND EXAMINE PATIENT, UPDATED ON PATIENT'S CONDITION, WILL FOLLOW UP ON ANY ORDER
[2018-10-14] MEDS ORDERED: BUDESONIDE 0.5 MG/2 ML NEBU INH SCH (07:30)
[2018-10-14] MEDS: BUDESONIDE 0.5 MG/2 ML NEBU INH SCH ×2 (07:30→18:58)
[2018-10-14] MEDS: BLOOD GLUCOSE MONITORING 1 DEV DEV FS SCH ×4 (07:40→20:43)
--- NOTE | 2018-10-14 07:58 | NUR ---
PLACED PATIENT ON NASAL CANNULA AT 3LPM, PROVIDED PATIENT WITH BREAKFAST TRAY. TOLERATING WELL, NO SIGNS OF DISTRESS NOTED
[2018-10-14] MEDS: methylPREDNISolone SS 125 MG/2 ML VIAL IVP SCH ×2 (08:15→20:27)
[2018-10-14] MEDS: FUROSEMIDE 20 MG/2 ML VIAL IVP SCH (08:16)
[2018-10-14] MEDS: AMIODARONE 200 MG TAB PO SCH ×2 (08:16→20:28)
[2018-10-14] MEDS: PANTOPRAZOLE 40 MG INJ VIAL IVP SCH (08:16)
[2018-10-14] MEDS: METOPROLOL 50 MG TAB PO SCH ×2 (08:17→20:56)
[2018-10-14] MEDS: LISINOPRIL 10 MG TAB PO SCH (08:17)
[2018-10-14] MEDS: ATORVASTATIN 20 MG TAB PO SCH (08:17)
[2018-10-14] MEDS: ASPIRIN 81 MG TAB.CHEW PO SCH (08:18)
[2018-10-14] MEDS: DORZOLAMIDE 2% OP 10 ML BTL OP SCH ×2 (08:18→20:43)
--- NOTE | 2018-10-14 08:33 | NUR ---
SCHEDULED MEDS ADMINISTERED, PATIENT TOLERATED WELL.
[2018-10-14] MEDS: DOCUSATE 100 MG/10 ML UDC GT SCH (08:55)
[2018-10-14] MEDS ORDERED: diphenhydrAMINE 2% 30 GM TUBE TP SCH (09:00)
[2018-10-14] MEDS: ACETYLCYSTEINE 10% (100 MG/ML) 100 MG/ML VIAL INH SCH (09:10)
[2018-10-14] MEDS: ALBUTEROL SULFATE/IPRATROPIU 3 ML SOL IH PRN (09:10)
[2018-10-14] MEDS ORDERED: DIPHENHYDRAMINE HCL/ZINC ACET 28 GM TUBE TP SCH ×2 (09:47→09:48)
[2018-10-14] MEDS ORDERED: DIPHENHYDRAMINE HCL/ZINC ACET 28 GM TUBE TP ONE (09:48)
--- NOTE | 2018-10-14 12:32 | NUR ---
DR. REVELES CALLED, UPDATED ON PATIENT'S CONDITION, AWARE THAT PATIENT HAS TOLERATED BREAKFAST WELL AND IS ASLEEP AT THIS TIME. NO NEW ORDERS RECEIVED
[2018-10-14] MEDS: INSULIN LISPRO SLIDING SCALE 100 UNITS/ML VIAL SUBQ PRN ×3 (12:48→21:15)
[2018-10-14] MEDS: DIPHENHYDRAMINE HCL/ZINC ACET 28 GM TUBE TP SCH ×2 (13:00→16:37)
--- NOTE | 2018-10-14 13:34 | NUR ---
CHANGED DRESSINGS ON SKIN TEARS TO R. UPPER ARM. PATIENT DENIES ANY PAIN.
[2018-10-14] MEDS: LORazepam 2 MG/ML VIAL IVP PRN (14:16)
--- NOTE | 2018-10-14 14:16 | NUR ---
PATIENT STATES THAT HE FEELS RESTLESS AND WOULD LIKE SOMETHING TO HELP HIM BE CALM. SAYS THAT DR. REVELES SPOKE WITH EARLIER AND SAID HE WOULD ORDER SOMETHING THAT WOULD HELP WITH THAT. GAVE PATIENT ATIVAN 1MG PRN IVP, PATIENT TOLERATED WELL.
--- NOTE | 2018-10-14 14:19 | NUR ---
DR. BRAVO IN TO SEE AND EXAMINE PATIENT, UPDATED ON PATIENT'S CONDITION. NO NEW ORDERS RECEIVED.
--- NOTE | 2018-10-14 16:06 | NUR ---
RT AT BEDSIDE, NO SIGNS OF DISTRESS NOTED.
--- NOTE | 2018-10-14 17:28 | NUR ---
PROVIDED PATIENT WITH DINNER TRAY, TOLERATING WELL, ON NASAL CANNULA 3LPM. DENIES ANY PAIN OR SOB.
[2018-10-14] MEDS: DEXT 5% /NACL 0.9% 1,000 ML IV SCH (17:43)
[2018-10-14] MEDS: NACL 0.9% 1,000 ML IV SCH (18:42)
[2018-10-14] MEDS ORDERED: metFORMIN 500 MG TAB PO SCH (19:00)
--- NOTE | 2018-10-14 19:11 | NUR ---
ENDORSED CONTINUITY OF CARE TO RETAIL BUSINESS MANAGER RN, BENSON, NO SIGNS OF DISTRESS NOTED.
--- NOTE | 2018-10-14 19:15 | NUR ---
RECEIVED REPORT FROM AM NURSE. PT AT BED AWAKE, ALERT AND ORIENTED X4, PERRLA 3MM, BRISK, HEART RATE REGULAR, S1S2, CAP REFILL <3S, PULSES 2+ BILATERAL UPPER AND LOWER EXTREMITIES, LUNG SOUNDS CLEAR THROUGHOUT, PT HAS NC RUNNING AT 3L/MIN, ABDOMEN SOFT, ROUND, NONDISTENDED, NONTENDER, BOWEL SOUNDS ACTIVE IN ALL QUADRANTS, BLADDER NONDISTENDED, NONTENDER, FC IN PLACE, URINE YELLOW, CLEAR, SKIN NONINTACT, RIGHT UPPER ARM SKIN TEAR, SKIN, WARM, DRY, APPROPRIATE FOR ETHNICITY, DRESSING IN PLACE, GENERALIZED WEAKNESS, PT HAS RIGHT UA PICC LINE RUNNING NS AT 40 ML/HR. HOB AT 30 DEGREES, SIDERAILS UP X2, CALL LIGHT WITHIN REACH.
[2018-10-14] MEDS: AZITHROMYCIN 500 MG in DEXTROSE 5% 250 ML IV SCH (20:25)
--- NOTE | 2018-10-14 20:30 | NUR ---
DR. EASTON AT BEDSIDE, UPDATED MD ON PT CONDITION. MD APPROVED PT TO BE CHANGED TO TELE STATUS.
--- NOTE | 2018-10-14 21:10 | NUR ---
PT AT BED RESTING, EYES CLOSED, BREATHING REGULARLY, VS WNL. WILL CONTINUE TO MONITOR.
--- NOTE | 2018-10-14 23:00 | NUR ---
PT AT BED RESTING, EYES CLOSED, BREATHING REGULARLY, VS WNL. WILL CONTINUE TO MONITOR
--- NOTE | 2018-10-15 02:00 | NUR ---
PT AT BED RESTING, EYES CLOSED, BREATHING REGULARLY, VS WNL. WILL CONTINUE TO MONITOR
[2018-10-15] MEDS: ALBUTEROL SULFATE/IPRATROPIU 3 ML SOL IH SCH ×6 (03:15→22:47)
[2018-10-15 04:00] VITALS: BP 126/72
--- NOTE | 2018-10-15 04:40 | NUR ---
REPORT RECEIVED FROM ICU NURSE AT BEDSIDE. PT IN STABLE CONDITION. AAOX4. INTRODUCED SELF TO PT. BOARD UPDATED. NO COMPLAINTS OF PAIN. NO SOB ON 3L O2 VIA NC. AFEBRILE. PT IS AMBULATORY WITH A CANE BUT IS ON BEDREST. PT HAS A SOTO IN PLACE. PT HAS R UA PICC LINE DOUBLE LUMEN PATENT AND INTACT. SKIN WARM, DRY, AND NOT INTACT DUE TO R FA SKIN TEAR. BED LOCKED IN LOW POSITION. CALL FERNANDEZ WITHIN REACH. SAFETY PRECAUTION IN PLACE. ALL NEEDS MET AT THIS TIME.
[2018-10-15] MEDS: PIPERACILLIN/TAZOBACTAM 3.375 GM in DEXTROSE 5% 50 ML IV SCH ×3 (05:15→21:16)
--- NOTE | 2018-10-15 05:15 | NUR ---
WILDA HUNG AND RUNNING. PT TOLERATING WELL.
[2018-10-15] MEDS: BLOOD GLUCOSE MONITORING 1 DEV DEV FS SCH ×4 (05:54→21:00)
--- NOTE | 2018-10-15 05:54 | NUR ---
BS 149. NO INSULIN COVERAGE NEEDED.
--- NOTE | 2018-10-15 07:10 | NUR ---
REPORT GIVEN TO AM NURSE AT BEDSIDE. PT IN STABLE CONDITION.
--- NOTE | 2018-10-15 07:11 | NUR ---
RECEIVED REPORT FROM YARN WINDER NURSE JAZZMINE FOR CONTINUITY OF CARE. PT IN STABLE CONDITION. RESPIRATIONS EVEN AND UNLABORED. O2 3LN VIA NC, INTACT AND PATENT. PICC LINE INTACT AND PATENT.SAFETY MEASURES IN PLACE. BED IN LOW POSITION. BED ALARM ON. CALL LIGHT AT BEDSIDE. WILL CONTINUE TO MONITOR.
[2018-10-15 07:35] LABS: ANION GAP 15.2 (8-16); CARBON DIOXIDE 25.1 mmol/L (21-32); CHLORIDE 108 mmol/L (98-107); CREATININE 1.6 mg/dL (0.7-1.3); GLUCOSE 177 mg/dL (74-106); POTASSIUM 3.3 mmol/L (3.5-5.1); SODIUM SERUM 145 mmol/L (136-145); UREA NITROGEN, BLOOD 36 mg/dL (7-18)
[2018-10-15 07:41] LABS: BASOPHILS % (AUTO) 0.1 % (0.0-2.0); HEMATOCRIT 31.8 % (36-52); HEMOGLOBIN 10.5 g/dL (12.0-18.0); LYMPHOCYTES # (AUTO) 0.4 K/uL (2.0-11.5); LYMPHOCYTES % (AUTO) 6.3 % (20.5-51.1); MEAN CORPUSCULAR HEMOGLOBIN 30 pg (27-31); MEAN CORPUSCULAR HGB CONC 33 g/dL (33-37); MEAN CORPUSCULAR VOLUME 89.5 fL (80-94); MONOCYTES # (AUTO) 0.4 K/uL (0.8-1.0); MONOCYTES % (AUTO) 5.3 % (1.7-9.3); NEUTROPHILS % (AUTO) 88.3 % (42.2-75.2); PLATELET COUNT (AUTO) 281 K/uL (140-450); RED BLOOD CELL COUNT(AUTO) 3.55 MIL/uL (4.20-6.10); RED CELL DISTRIBUTION WIDTH 14.7 % (11.6-13.7); WHITE BLOOD COUNT (AUTO) 6.8 K/uL (4.8-10.8)
[2018-10-15 07:54] LABS: MAGNESIUM 2.1 mg/dL (1.8-2.4)
[2018-10-15] MEDS: BUDESONIDE 0.5 MG/2 ML NEBU INH SCH ×2 (07:57→19:24)
[2018-10-15] MEDS: ACETYLCYSTEINE 10% (100 MG/ML) 100 MG/ML VIAL INH SCH (07:59)
[2018-10-15 08:00] VITALS: BP 111/72
[2018-10-15] MEDS: PANTOPRAZOLE 40 MG INJ VIAL IVP SCH (09:15)
[2018-10-15] MEDS: DOCUSATE 100 MG/10 ML UDC GT SCH (09:15)
[2018-10-15] MEDS: methylPREDNISolone SS 125 MG/2 ML VIAL IVP SCH ×2 (09:15→21:20)
[2018-10-15] MEDS: FUROSEMIDE 20 MG/2 ML VIAL IVP SCH (09:16)
[2018-10-15] MEDS: metFORMIN 500 MG TAB PO SCH ×3 (09:17→16:32)
[2018-10-15] MEDS: LISINOPRIL 10 MG TAB PO SCH (09:17)
[2018-10-15] MEDS: ASPIRIN 81 MG TAB.CHEW PO SCH (09:17)
[2018-10-15] MEDS: AMIODARONE 200 MG TAB PO SCH ×2 (09:18→21:24)
[2018-10-15] MEDS: ATORVASTATIN 20 MG TAB PO SCH (09:18)
[2018-10-15] MEDS: METOPROLOL 50 MG TAB PO SCH ×2 (09:19→21:25)
[2018-10-15] MEDS: DIPHENHYDRAMINE HCL/ZINC ACET 28 GM TUBE TP SCH ×3 (09:19→16:33)
[2018-10-15] MEDS: DORZOLAMIDE 2% OP 10 ML BTL OP SCH ×2 (09:20→21:00)
--- NOTE | 2018-10-15 09:28 | NUR ---
GAVE ORDERED DUE MEDICATIONS AT THIS TIME. PT TOLERATED WELL. BED IN LOW POSITION. CALL LIGHT AT BEDSIDE. BED ALARM ON. WILL CONTINUE TO MONITOR.
--- NOTE | 2018-10-15 10:48 | NUR ---
Clinicals faxed to [facility] .
--- NOTE | 2018-10-15 11:33 | NUR ---
PT LYING IN BED SLEEPING AT THIS TIME. RESPIRATIONS EVEN AND UNLABORED. BED IN LOW POSITION. BED ALARM ON. CALL LIGHT AT BEDSIDE. WILL CONTINUE TO MONITOR.
[2018-10-15 12:00] VITALS: BP 128/82
[2018-10-15] MEDS: INSULIN LISPRO SLIDING SCALE 100 UNITS/ML VIAL SUBQ PRN (12:48)
--- NOTE | 2018-10-15 13:17 | NUR ---
Spoke with Kiara Judge CM from [facility]. Informed Kiara that the discharge plan for the pt per Dr. Galindo is in 2 days if everything is okay. Per Kiara, no transfer needed for the pt. Informed Dr. Galindo that pt doesn't need to be transferred to [facility] per Kiara Judge CM from [facility]. Addendum: 10/15/18 at 1429 by Katherine Sexton CM Please disregard above charting. Incorrect pt.
--- NOTE | 2018-10-15 13:56 | NUR ---
ASSISTED PT WITH BEDPAN AND REPOSITIONED PT AT THIS TIME. PT TOLERATED WELL. BED IN LOW POSITION. BED ALARM ON. CALL LIGHT AT BEDSIDE. WILL CONTINUE TO MONITOR.
--- NOTE | 2018-10-15 15:02 | NUR ---
ASSISTED PT WITH BED CHEUNG AT THIS TIME. NO BM AT THIS TIME. SOTO CATHETER ALREADY IN PLACE. PT TOLERATED WELL. RESPIRATIONS EVEN AND UNLABORED. BED IN LOW POSITION. BED ALARM ON. CALL LIGHT AT BEDSIDE. WILL CONTINUE TO MONITOR.
[2018-10-15 16:00] VITALS: BP 126/84
--- NOTE | 2018-10-15 18:50 | NUR ---
* ST NOTE * Pt seen at bedside. Pt alert, cooperative and engaged throughout session, reporting no c/o pain at this time. Pt presenting with intermittent cough throughout session. Bedside dysphagia and oral mechanism exams completed. See evaluation report for further details. Pt tolerating 4/4 alternating PO trials of regular solid crackers as well as 5/5 alternating PO trials of thin liquid apple juice via a straw, all w/o s/s of aspiration or choking. Pt and nsg education completed re: aspiration precautions and safe swallow compensatory strategies pt and caregivers could utilize to aid pt w/swallow function, w/pt and caregivers verbalizing understanding and agreement w/clinician's recommendations. Because pt presenting with mild residue in oral cavity after PO intake of regular solids, it is recommended pt's PO diet consistency be modified to mechanical soft textures w/thin liquids for all meals, w/aspiration precautions in place. No further ST follow up recommended at this time. Pt and caregiver/Nsg Gissell education completed re: results of evaluation; benefits of abiding by aspiration precautions and recommended PO diet consistency; and prognosis for improvement; w/pt and caregiver/Nsg Gissell verbalizing understanding and agreement w/clinician's recommendations. Recommend: - PO DIET CONSISTENCY OF MECHANICAL SOFT TEXTURES W/THIN LIQUIDS for all meals - WHOLE PILL MEDICATION ADMINISTRATION - MAINTAIN STRICT ASPIRATION PRECAUTIONS DURING PT'S PO INTAKE 2/2 TO DX OF PNA - Pt can self-feed - Assure pt's dentures are in prior to PO intake - CUE/REMIND PT TO SIT UP AT 80-90 DEGREE ANGLE DURING PT'S PO INTAKE; EAT/DRINK SLOWLY; TAKE SMALL BITES/SIPS; AND ALTERNATE BTWN SOLIDS & LIQUIDS No further ST follow up recommended at this time. NOMS Level 3
--- NOTE | 2018-10-15 19:10 | NUR ---
GAVE REPORT TO STOREKEEPER HELPER NURSE BRANDY FOR CONTINUITY OF CARE. PT IN STABLE CONDITION.
--- NOTE | 2018-10-15 19:10 | NUR ---
RECIEVED PT AAOX4 , RESPIRATION EVEN AND UNLABORED , ON O2 AT 3LPM/NC , O2 SAT 90% , V/S WNL . WITH PICC LINE INTACT AND PATENT , IVF INFUSING WELL , ON PUREE DIET , PLAN OF CARE DISCUSSED AND VERBALIZE UNDERSTANDING . BED IN LOW POSITION , SIDERAILS UPX2 , CALL LIGHT WITHIN REACH , WILL CONT. TO MONITOR.
[2018-10-15 20:00] VITALS: BP 132/79
[2018-10-15] MEDS ORDERED: PIPERACILLIN/TAZOBACTAM 3.375 GM VIAL IV ONE (21:21)
--- NOTE | 2018-10-15 22:00 | NUR ---
MADE ROUNDS , RESPIRATION EVEN AND UNLABORED , NO COMPLAIN MADE AT THIS TIME. CALL LIGHT WITHIN REACH.
[2018-10-15] MEDS: AZITHROMYCIN 500 MG in DEXTROSE 5% 250 ML IV SCH (22:40)
[2018-10-15] MEDS ORDERED: AZITHROMYCIN 500 MG INJ VIAL IV ONE (22:47)
[2018-10-16] VITALS: BP 130/72
--- NOTE | 2018-10-16 | NUR ---
MADE ROUNDS , V/S WNL , RESPIRATION EVEN AND UNLABORED , WATCHING TV , NO COMPLAIN MADE AT THIS TIME.CALL LIGHT WITHIN REACH.
[2018-10-16] MEDS: NACL 0.9% 1,000 ML IV SCH (02:33)
[2018-10-16] MEDS: ALBUTEROL SULFATE/IPRATROPIU 3 ML SOL IH SCH ×6 (02:58→23:00)
[2018-10-16 04:00] VITALS: BP 133/70
--- NOTE | 2018-10-16 04:00 | NUR ---
MADE ROUNDS , RESPIRATION EVEN AND UNLABORED , WITH NO COMPLAIN MADE ATTHIS TIME. CALL LIGHT WITHIN REACH
[2018-10-16] MEDS: PIPERACILLIN/TAZOBACTAM 3.375 GM in DEXTROSE 5% 50 ML IV SCH ×3 (05:18→20:21)
[2018-10-16] MEDS: BLOOD GLUCOSE MONITORING 1 DEV DEV FS SCH ×4 (06:33→20:50)
[2018-10-16] MEDS: INSULIN LISPRO SLIDING SCALE 100 UNITS/ML VIAL SUBQ PRN ×4 (06:53→20:21)
--- NOTE | 2018-10-16 07:25 | NUR ---
RECEIVED BEDSIDE REPORT FROM EMPLOYEE RELATIONS REPRESENTATIVE NURSE FOR CONTINUITY OF CARE. PATIENT IS AWAKE AND RESTING ON BED. PATIENT IS AAOX4, SPEAKS SETSWANA. RESPIRATION EVEN AND UNLABORED ON 3LPM VIA NC. LUNGS ARE CLEAR ON AUSCULTATION. PATIENT DENIED PAIN AT THIS TIME. NO SIGNS OF DISTRESS NOTED. PICC ON R UPPER ARM, CLEAN AND INTACT, INFUSING PER MD ORDER. R ARM SKIN TEAR NOTED, COVERED WITH DRESSING, CLEAN AND DRY. SOTO IN PLACE AND DRAINING YELLOW URINE. PATIENT IS BEDREST. DISCUSSED PLAN OF CARE WITH PATIENT, AND PATIENT VERBALIZED UNDERSTANDING. TELE MONITOR ATTACHED. SAFETY MEASURES IN PLACE. FALL PROTOCOL INITIALED. BED IN LOW POSITION AND CALL LIGHT WITHIN REACH. INSTRUCTED PATIENT TO USE THE CALL LIGHT FOR ANY ASSISTANCE AND PATIENT WAS AWARE.
--- NOTE | 2018-10-16 07:25 | NUR ---
ENDORSED TO AM SHIFT WITH STABLE CONDITION.
[2018-10-16 07:27] LABS: HEMATOCRIT 30.7 % (36-52); HEMOGLOBIN 9.9 g/dL (12.0-18.0); LYMPHOCYTES # (AUTO) 0.4 K/uL (2.0-11.5); LYMPHOCYTES % (AUTO) 6.4 % (20.5-51.1); MEAN CORPUSCULAR HEMOGLOBIN 29 pg (27-31); MEAN CORPUSCULAR HGB CONC 32 g/dL (33-37); MEAN CORPUSCULAR VOLUME 90.1 fL (80-94); MONOCYTES # (AUTO) 0.5 K/uL (0.8-1.0); MONOCYTES % (AUTO) 6.9 % (1.7-9.3); NEUTROPHILS # (AUTO) 5.9 K/uL (1.8-7.7); NEUTROPHILS % (AUTO) 86.7 % (42.2-75.2); PLATELET COUNT (AUTO) 255 K/uL (140-450); RED BLOOD CELL COUNT(AUTO) 3.41 MIL/uL (4.20-6.10); RED CELL DISTRIBUTION WIDTH 15.4 % (11.6-13.7); WHITE BLOOD COUNT (AUTO) 6.8 K/uL (4.8-10.8)
[2018-10-16 07:49] LABS: ANION GAP 13.5 (8-16); CARBON DIOXIDE 25.1 mmol/L (21-32); CHLORIDE 106 mmol/L (98-107); CREATININE 1.8 mg/dL (0.7-1.3); GLUCOSE 291 mg/dL (74-106); POTASSIUM 3.6 mmol/L (3.5-5.1); SODIUM SERUM 141 mmol/L (136-145); UREA NITROGEN, BLOOD 41 mg/dL (7-18)
[2018-10-16 07:57] LABS: MAGNESIUM 1.9 mg/dL (1.8-2.4); PHOSPHORUS 4.4 mg/dL (2.5-4.9)
[2018-10-16 08:00] VITALS: BP 146/78
[2018-10-16] MEDS: metFORMIN 500 MG TAB PO SCH (08:11)
[2018-10-16] MEDS: BUDESONIDE 0.5 MG/2 ML NEBU INH SCH ×2 (08:15→19:35)
[2018-10-16] MEDS: ACETYLCYSTEINE 10% (100 MG/ML) 100 MG/ML VIAL INH SCH (08:16)
[2018-10-16] MEDS ORDERED: FUROSEMIDE 40 MG TAB PO SCH (09:00)
[2018-10-16] MEDS ORDERED: predniSONE 20 MG TAB PO SCH (09:26)
[2018-10-16] MEDS: FUROSEMIDE 20 MG TAB PO SCH (09:32)
[2018-10-16] MEDS: METOPROLOL 50 MG TAB PO SCH ×2 (09:32→20:18)
[2018-10-16] MEDS: ASPIRIN 81 MG TAB.CHEW PO SCH (09:33)
[2018-10-16] MEDS: ATORVASTATIN 20 MG TAB PO SCH (09:34)
[2018-10-16] MEDS: AMIODARONE 200 MG TAB PO SCH ×2 (09:34→20:18)
[2018-10-16] MEDS: DOCUSATE 100 MG/10 ML UDC GT SCH (09:35)
[2018-10-16] MEDS: PANTOPRAZOLE 40 MG INJ VIAL IVP SCH (09:36)
[2018-10-16] MEDS: DORZOLAMIDE 2% OP 10 ML BTL OP SCH ×2 (09:44→20:27)
[2018-10-16] MEDS: DIPHENHYDRAMINE HCL/ZINC ACET 28 GM TUBE TP SCH ×3 (09:46→17:20)
--- NOTE | 2018-10-16 09:46 | NUR ---
ADMINISTERED MEDS PER MD ORDER, PATIENT TOLERATED WELL. DENIED PAIN AND SOB. PATIENT IS ON 3LPM VIA NC. RESPIRATION EVEN AND UNLABORED. NO SIGNS OF DISTRESS NOTED. TELE MONITOR ATTACHED. SAFETY MEASURES IN PLACE. BED IN LOW POSITION AND CALL LIGHT WITHIN REACH. INSTRUCTED PATIENT TO USE THE CALL LIGHT FOR ANY ASSISTANCE AND PATIENT WAS AWARE.
--- NOTE | 2018-10-16 11:40 | NUR ---
PATIENT AWAKE AND WATCHING TV ON BED. RESPIRATION EVEN AND UNLABORED ON 3LPM VIA NC. PATIENT DENIED PAIN AND SOB. NO SIGNS OF DISTRESS NOTED. SAFETY MEASURES IN PLACE. BED IN LOW POSITION AND CALL LIGHT WITHIN REACH. BED ALARM ACTIVATED. INSTRUCTED PATIENT TO USE THE CALL LIGHT FOR ANY ASSISTANCE AND PATIENT WAS AWARE.
[2018-10-16 12:00] VITALS: BP 140/69
--- NOTE | 2018-10-16 13:20 | NUR ---
PATIENT IS RESTING ON BED. DENIED PAIN AND SOB. RESPIRATION EVEN AND UNLABORED ON 3LPM VIA NC. NO SIGNS OF DISTRESS NOTED. TELE MONITOR ATTACHED. SAFETY MEASURES IN PLACE. BED IN LOW POSITION AND CALL LIGHT WITHIN REACH. BED ALARM ACTIVATED. INSTRUCTED PATIENT TO USE THE CALL LIGHT FOR ANY ASSISTANCE AND PATIENT WAS AWARE.
--- NOTE | 2018-10-16 14:57 | NUR ---
10/16/18 RD FOLLOW UP COMPLETED PLEASE REFER TO NUTRITION ASSESSMENT UNDER CARE ACTIVITY FOR ESTIMATED NUTRITIONAL NEEDS. 1. RECOMMEND MECHANICAL SOFT DIET CCHO 60 GM AND CARDIAC DIET DIET TOLERATED 2. RD TO FOLLOW-UP 2-3 DAYS, HIGH RISK KULWANT ZELAYA, RD
[2018-10-16 16:00] VITALS: BP 142/81
--- NOTE | 2018-10-16 17:24 | NUR ---
PATIENT AWAKE AND WATCHING TV ON BED. RESPIRATION EVEN AND UNLABORED ON 3LPM VIA NC. DENIED PAIN AND SOB. SOTO DRAINING YELLOW URINE. NO SIGNS OF DISTRESS NOTED. TELE MONITOR ATTACHED. SAFETY MEASURES IN PLACE. BED IN LOW POSITION AND CALL LIGHT WITHIN REACH. BED ALARM ACTIVATED. INSTRUCTED PATIENT TO USE THE CALL LIGHT FOR ANY ASSISTANCE AND PATIENT WAS AWARE.
--- NOTE | 2018-10-16 19:17 | NUR ---
ENDORSED PATIENT AT BEDSIDE TO EXPERIMENTAL PLASTICS FABRICATOR NURSE FOR CONTINUITY OF CARE. PATIENT AWAKE AND WATCHING TV ON BED. NO SIGNS OF DISTRESS NOTED. PATIENT IS IN STABLE CONDITION. TELE MONITOR ATTACHED. SAFETY MEASURES IN PLACE. BED IN LOW POSITION AND CALL LIGHT WITHIN REACH.
--- NOTE | 2018-10-16 19:18 | NUR ---
RECEIVED PT ON BED, AAOX4, VITAL SIGNS STABLE, DENIES ANY PAIN, NO SOB NOTED, SAT-94% ON O2 AT 3L NC, OCCASIONAL COUGH NOTED, IVF INFUSING WELL VIA RT UA PICC LINE, DRESSING DRY AND INTACT, SOTO CATHETER IN PLACE DRAINING WELL, PLAN OF CARE DISCUSSED, SAFETY MEASURES IN PLACE, CALL LIGHT WITHIN REACH.
[2018-10-16 20:00] VITALS: BP 145/76
--- NOTE | 2018-10-16 20:30 | NUR ---
BLOOD SUGAR CHECKED WITH 187 RESULT, COVERAGE GIVEN, DUE MEDS ADMINISTERED, TOLERATED WELL, ALL NEEDS ATTENDED.
[2018-10-16] MEDS: AZITHROMYCIN 500 MG in DEXTROSE 5% 250 ML IV SCH (20:58)
--- NOTE | 2018-10-16 21:40 | NUR ---
PT HAD LOOSE BM MODERATE AMOUNT, CLEANED AND REPOSITIONED, MONITORED CLOSELY.
--- NOTE | 2018-10-16 23:50 | NUR ---
PT AWAKE WATCHING TV, VITAL SIGNS STABLE, NO SOB NOTED, DENIES ANY PAIN, CONTINUE TO MONITOR CLOSELY.
[2018-10-17] VITALS: BP 131/72
[2018-10-17] MEDS: ALBUTEROL SULFATE/IPRATROPIU 3 ML SOL IH SCH ×6 (03:00→22:47)
--- NOTE | 2018-10-17 03:50 | NUR ---
PT SLEEPING, EASILY AROUSABLE, VITAL SIGNS STABLE, DENIES ANY PAIN, NO SOB NOTED, PT WENT BACK TO SLEEP, MONITORED CLOSELY.
[2018-10-17 04:00] VITALS: BP 145/76
--- NOTE | 2018-10-17 04:00 | NUR ---
PT IS SOUND ASLEEP WITH NO RESPIRATORY DISTRESS. PT REFUSED TX AT THIS TIME. CLR BXS.
[2018-10-17] MEDS: PIPERACILLIN/TAZOBACTAM 3.375 GM in DEXTROSE 5% 50 ML IV SCH ×3 (04:56→21:27)
--- NOTE | 2018-10-17 05:40 | NUR ---
BLOOD SUGAR CHECKED WITH 134 RESULT, NO COVERAGE NEEDED, PT WATCHING TV, NO DISTRESS NOTED.
[2018-10-17] MEDS: BLOOD GLUCOSE MONITORING 1 DEV DEV FS SCH ×4 (06:36→21:35)
--- NOTE | 2018-10-17 07:10 | NUR ---
PT SLEEPING EASILY AROUSABLE, NO SIGNS OF DISTRESS, REPORT GIVEN TO ALVIN DON FOR CONTINUITY OF CARE.
[2018-10-17] MEDS: BUDESONIDE 0.5 MG/2 ML NEBU INH SCH ×2 (07:20→19:51)
[2018-10-17 07:21] LABS: BASOPHILS % (AUTO) 0.2 % (0.0-2.0); EOSINOPHILS % (AUTO) 0.1 % (0.0-4.0); HEMATOCRIT 30.9 % (36-52); LYMPHOCYTES # (AUTO) 1.1 K/uL (2.0-11.5); LYMPHOCYTES % (AUTO) 17.7 % (20.5-51.1); MEAN CORPUSCULAR HEMOGLOBIN 29 pg (27-31); MEAN CORPUSCULAR HGB CONC 32 g/dL (33-37); MONOCYTES # (AUTO) 0.6 K/uL (0.8-1.0); MONOCYTES % (AUTO) 9.9 % (1.7-9.3); NEUTROPHILS # (AUTO) 4.4 K/uL (1.8-7.7); NEUTROPHILS % (AUTO) 72.1 % (42.2-75.2); PLATELET COUNT (AUTO) 251 K/uL (140-450); RED BLOOD CELL COUNT(AUTO) 3.44 MIL/uL (4.20-6.10); RED CELL DISTRIBUTION WIDTH 15.4 % (11.6-13.7); WHITE BLOOD COUNT (AUTO) 6.1 K/uL (4.8-10.8)
--- NOTE | 2018-10-17 07:25 | NUR ---
RECEIVED REPORT FROM FINANCIAL UNDERWRITER NURSE. AROUSABLE TO NAME, PT AAOX4, NO C/O PAIN. RESPIRATIONS EVEN AND UNLABORED ON O2 3L VIA N/C, CLEAR LUNG SOUNDS, PT HAVING BREATHING TREATMENTS AT THE MOMENT. BOWEL SOUNDS ACTIVE, REPORTED LBM 10/17. NO S/S OF HYPO/HYPERGLYCEMIA. PT ON BANKMAN. NO EDEMA TO EXTREMITIES NOTED. F/C IN PLACE, 15 ML OF YELLOW AND CLEAR URINE NOTED IN COLLECTION BAG. SKIN COLOR IS APPROPRIATE TO ETHNICITY, INTEGRITY IS INTACT, WARM TO TOUCH. REVIEWED POC WITH PT, PT VERBALIZED UNDERSTANDING. PT ON FALL PRECAUTIONS, NOTED YELLOW GOWN, YELLOW SOCKS, YELLOW ARMBAND AND FALLING STAR POSTED ON DOOR. SAFETY MEASURES IN PLACE, BED ON LOW POSITION, CALL LIGHT WITHIN REACH. WILL CONTINUE TO MONITOR. Addendum: 10/17/18 at 1008 by Blanca Alfonso RN ADDITION: NOTED SKIN TEAR TO LEFT UPPER ARM, DRESSING CHANGED. NO NEW SKIN TEAR NOTED. Addendum: 10/17/18 at 1021 by Blanca Alfonso RN CLARIFICATION: SKIN TEAR TO RIGHT UPPER ARM. Addendum: 10/17/18 at 1259 by Blanca Alfonso RN ADDITION PICC LINE ON RT UA. ONE PORT RUNNING IVF PER ORDER. RESISTANCE WHEN FLUSHING TO OTHER PORT, DISINFECTING CAP PLACED.
[2018-10-17 08:00] VITALS: BP 155/80
[2018-10-17] MEDS: DORZOLAMIDE 2% OP 10 ML BTL OP SCH ×2 (08:23→21:33)
[2018-10-17] MEDS: DOCUSATE 100 MG/10 ML UDC GT SCH (08:25)
[2018-10-17] MEDS: ATORVASTATIN 20 MG TAB PO SCH (08:25)
[2018-10-17] MEDS: AMIODARONE 200 MG TAB PO SCH (08:26)
[2018-10-17] MEDS: predniSONE 20 MG TAB PO SCH (08:26)
[2018-10-17] MEDS: METOPROLOL 50 MG TAB PO SCH ×2 (08:26→21:27)
[2018-10-17] MEDS: ASPIRIN 81 MG TAB.CHEW PO SCH (08:27)
[2018-10-17] MEDS: FUROSEMIDE 20 MG TAB PO SCH (08:27)
[2018-10-17] MEDS: PANTOPRAZOLE 40 MG INJ VIAL IVP SCH (08:28)
[2018-10-17 08:29] LABS: ANION GAP 12.7 (8-16); CARBON DIOXIDE 23.7 mmol/L (21-32); CHLORIDE 108 mmol/L (98-107); CREATININE 1.8 mg/dL (0.7-1.3); GLUCOSE 153 mg/dL (74-106); POTASSIUM 3.4 mmol/L (3.5-5.1); SODIUM SERUM 141 mmol/L (136-145); UREA NITROGEN, BLOOD 40 mg/dL (7-18)
[2018-10-17] MEDS: ACETYLCYSTEINE 10% (100 MG/ML) 100 MG/ML VIAL INH SCH (08:29)
[2018-10-17] MEDS: DIPHENHYDRAMINE HCL/ZINC ACET 28 GM TUBE TP SCH ×3 (08:30→16:52)
[2018-10-17] MEDS: FUROSEMIDE 40 MG TAB PO SCH (08:58)
--- NOTE | 2018-10-17 09:00 | NUR ---
SPOKE WITH RT REGARDING MUCOMYST BREATHING TX. PT GIVEN TX PER ORDER. GIVEN TO RIGHT PATIENT, RIGHT ROUTE, RIGHT DOSE, RIGHT MEDICATION, RIGHT TIME. PT IS ON O2 3L VIA N/C, O2 SAT 99%. PT TOLERATED WELL, NO SIGNS OF DISTRESS AT THIS TIME.
[2018-10-17] MEDS ORDERED: HYDRAGUARD CREAM TP ONE (09:16)
--- NOTE | 2018-10-17 09:25 | NUR ---
concepcion given tp pt via holly orantes
[2018-10-17] MEDS: hydrALAZINE 20 MG/ML VIAL IVP PRN (10:35)
[2018-10-17 12:00] VITALS: BP 148/72
[2018-10-17] MEDS: INSULIN LISPRO SLIDING SCALE 100 UNITS/ML VIAL SUBQ PRN ×3 (12:24→21:34)
--- NOTE | 2018-10-17 13:50 | NUR ---
PT GIVEN BEDPAN PER REQUEST. NO SIGNS OF DISTRESS OR SOB. RESPIRATIONS EVEN AND UNLABORE ON O2 3L VIA N/C.
--- NOTE | 2018-10-17 13:58 | NUR ---
attempted to wean pt dowm on fi02 fr0m 3lpm pt desaturated to .85 sp02 placed back on 3lpm nc dr clark aware
[2018-10-17] MEDS ORDERED: POTASSIUM CHLORIDE 20 MEQ, LIDOCAINE MPF 1% - 5 mL VIAL 25 MG in NACL 0.9% 250 ML IV SCH (15:30)
--- NOTE | 2018-10-17 15:30 | NUR ---
PT GIVEN BEDPAN PER REQUEST. NO SIGNS OF DISTRESS AT THIS TIME.
[2018-10-17 16:00] VITALS: BP 147/81
--- NOTE | 2018-10-17 16:16 | NUR ---
GARRISON [place] [facility] [phone] MADE AWARE OF DC PLAN FOR TOMORROW.
--- NOTE | 2018-10-17 18:30 | NUR ---
DISCONTINUED F/C PER ORDER, NOTED 350 ML OF YELLOW AND CLEAR URINE. PT TOLERATED WELL. N C/O PAIN AT THIS TIME. PT GIVEN URINAL TO USE FOR LATER TIME.
--- NOTE | 2018-10-17 19:24 | NUR ---
ENDORSED PT TO CHAIN PERSON NURSE FOR CONTINUITY OF CARE. PT HAS NO SIGNS OF DISTRESS AT THIS TIME.
--- NOTE | 2018-10-17 19:25 | NUR ---
RECEIVED BEDSIDE REPORT FROM DAY SHIFT RN ARIAN, PT STABLE, NO DISTRESS NOTED, PICC LINE TO R UPPER ARM DOUBLE LUMEN, ONE LUMEN PATENT, DRESSING CLEAN DRY AND INTACT, PT ON 3LPM O2 VIA NC, NO SOB NOTED, NO C/O PAIN AT THIS MOMENT, INITIAL ASSESSMENT DONE, ALL SAFETY PRECAUTION MET, CALL LIGHT WITHIN REACH, WILL CONTINUE TO MONITOR.
[2018-10-17 20:00] VITALS: BP 154/94
--- NOTE | 2018-10-17 20:01 | NUR ---
PT WANTS THE [place] [facility] IN THE MORNING, LIKE 4AM, HE WANTS TO SLEEP, AND IN CASE HIS SOB HE WILL CALL.
--- NOTE | 2018-10-17 21:35 | NUR ---
DUE MEDICATION ADMINISTERED, PT TOLERATED WELL, NO DISTRESS NOTED, CALL LIGHT WITHIN REACH, WILL CONTINUE TO MONITOR.
[2018-10-17] MEDS: AZITHROMYCIN 500 MG in DEXTROSE 5% 250 ML IV SCH (21:58)
[2018-10-18] VITALS: BP 129/83
[2018-10-18] MEDS ORDERED: MELATONIN 3 MG TAB PO PRN
[2018-10-18] MEDS: LORazepam 2 MG/ML VIAL IVP PRN (00:01)
--- NOTE | 2018-10-18 00:01 | NUR ---
PT RESTLESS AND AGITATED, MEDICATION PER MD ORDER ADMINISTERED, PT TOLERATED WELL, NO DISTRESS NOTED, CALL LIGHT WITHIN REACH, WILL CONTINUE TO MONITOR.
--- NOTE | 2018-10-18 02:10 | NUR ---
PT SLEEPING, NO DISTRESS NOTED, CALL LIGHT WITHIN REACH, WILL CONTINUE TO MONITOR.
[2018-10-18] MEDS: ALBUTEROL SULFATE/IPRATROPIU 3 ML SOL IH SCH ×4 (03:26→15:27)
[2018-10-18 04:00] VITALS: BP 147/69
--- NOTE | 2018-10-18 04:08 | NUR ---
CHECKED ON PT, V/S TAKEN, WNL, CALL LIGHT WITHIN REACH, WILL CONTINUE TO MONITOR.
[2018-10-18] MEDS: BLOOD GLUCOSE MONITORING 1 DEV DEV FS SCH ×2 (06:12→11:56)
--- NOTE | 2018-10-18 07:14 | NUR ---
ENDORSED PT TO DAY SHIFT ALVIN DON, GLENN STABLE, NO DISTRESS NOTED, CALL LIGHT WITHIN REACH.
--- NOTE | 2018-10-18 07:15 | NUR ---
RECEIVED REPORT FROM SOFTWARE ENGINEERING ASSOCIATE MANAGER NURSE. PT SLEEPING SUPINE IN BED, AROUSABLE TO NAME, PT AAOX4, NO C/O PAIN AT THIS TIME. RESPIRATIONS EVEN AND UNLABORED ON O2 3L VIA N/C, CLEAR LUNG SOUNDS. BOWEL SOUNDS ACTIVE, ABD SOFT. NO S/S OF HYPO/HYPERGLYCEMIA. 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 PICC LINE ON RT UA, ONLY 1 LUMEN IS PATENT. NO EDEMA TO EXTREMITIES NOTED. SKIN COLOR IS APPROPRIATE TO ETHNICITY, WARM TO TOUCH, SKIN TEAR TO RIGHT UPPER ARM WITH DRESSING CLEAN, DRY AND INTACT. REVIEWED POC WITH PT, PT VERBALIZED UNDERSTANDING. PT ON FALL PRECAUTIONS, NOTED YELLOW GOWN, YELLOW SOCKS, YELLOW ARMBAND AND FALLING STAR POSTED ON DOOR. SAFETY MEASURES IN PLACE, BED ON LOW POSITION, CALL LIGHT WITHIN REACH. WILL CONTINUE TO MONITOR.
[2018-10-18] MEDS: ACETYLCYSTEINE 10% (100 MG/ML) 100 MG/ML VIAL INH SCH (07:18)
[2018-10-18 07:32] LABS: BASOPHILS % (AUTO) 0.2 % (0.0-2.0); EOSINOPHILS % (AUTO) 0.1 % (0.0-4.0); HEMATOCRIT 32.3 % (36-52); HEMOGLOBIN 10.7 g/dL (12.0-18.0); LYMPHOCYTES # (AUTO) 1.1 K/uL (2.0-11.5); LYMPHOCYTES % (AUTO) 20.9 % (20.5-51.1); MEAN CORPUSCULAR HEMOGLOBIN 30 pg (27-31); MEAN CORPUSCULAR HGB CONC 33 g/dL (33-37); MEAN CORPUSCULAR VOLUME 89.7 fL (80-94); MONOCYTES # (AUTO) 0.5 K/uL (0.8-1.0); MONOCYTES % (AUTO) 8.8 % (1.7-9.3); NEUTROPHILS # (AUTO) 3.6 K/uL (1.8-7.7); PLATELET COUNT (AUTO) 253 K/uL (140-450); RED CELL DISTRIBUTION WIDTH 15.2 % (11.6-13.7); WHITE BLOOD COUNT (AUTO) 5.2 K/uL (4.8-10.8)
[2018-10-18] MEDS: BUDESONIDE 0.5 MG/2 ML NEBU INH SCH (07:34)
[2018-10-18 07:55] LABS: MAGNESIUM 1.9 mg/dL (1.8-2.4); PHOSPHORUS 3.7 mg/dL (2.5-4.9)
[2018-10-18 07:59] LABS: ANION GAP 12.5 (8-16); CARBON DIOXIDE 25.7 mmol/L (21-32); CHLORIDE 109 mmol/L (98-107); CREATININE 1.7 mg/dL (0.7-1.3); GLUCOSE 107 mg/dL (74-106); POTASSIUM 3.2 mmol/L (3.5-5.1); SODIUM SERUM 144 mmol/L (136-145); UREA NITROGEN, BLOOD 35 mg/dL (7-18)
[2018-10-18 08:00] VITALS: BP 155/81
[2018-10-18] MEDS: FUROSEMIDE 40 MG TAB PO SCH (08:43)
[2018-10-18] MEDS: METOPROLOL 50 MG TAB PO SCH (08:43)
[2018-10-18] MEDS: ATORVASTATIN 20 MG TAB PO SCH (08:44)
[2018-10-18] MEDS: DOCUSATE 100 MG/10 ML UDC GT SCH (08:44)
[2018-10-18] MEDS: predniSONE 20 MG TAB PO SCH (08:44)
[2018-10-18] MEDS: AMIODARONE 200 MG TAB PO SCH (08:45)
[2018-10-18] MEDS: ASPIRIN 81 MG TAB.CHEW PO SCH (08:45)
[2018-10-18] MEDS: PANTOPRAZOLE 40 MG INJ VIAL IVP SCH (08:47)
[2018-10-18] MEDS: DIPHENHYDRAMINE HCL/ZINC ACET 28 GM TUBE TP SCH ×2 (08:49→13:14)
[2018-10-18] MEDS: DORZOLAMIDE 2% OP 10 ML BTL OP SCH (08:50)
--- NOTE | 2018-10-18 10:03 | NUR ---
CONTACTED [facility] AT [phone], PER [place] PATIENT WILL GO TO ROOM 9B UNDER DR. VIDHI SANCHEZ. WILL SET UP TRANSPORT.
--- NOTE | 2018-10-18 10:24 | NUR ---
SKIN ASSESSMENT AND WOUND CARE DONE TO RT UPPER ARM. PT TOLERATED WELL, NO C/O PAIN AT THIS TIME.
[2018-10-18 12:00] VITALS: BP 139/69
[2018-10-18] MEDS: INSULIN LISPRO SLIDING SCALE 100 UNITS/ML VIAL SUBQ PRN (12:22)
--- NOTE | 2018-10-18 12:22 | NUR ---
PT GIVEN 4 UNITS OF HUMALOG PER SLIDING SCALE. NO SIGNS OF HYPERGLYCEMIA. WILL CONTINUE TO MONITOR.
[2018-10-18] MEDS ORDERED: HYDRAGUARD CREAM TP SCH (13:00)
[2018-10-18] MEDS ORDERED: ALBU3SOL83 IH ×2 (13:17→15:07)
[2018-10-18] MEDS ORDERED: HUMSLIDE SUBQ (13:17)
[2018-10-18] MEDS ORDERED: FURO40TA9 PO (13:17)
[2018-10-18] MEDS ORDERED: HEPA500056 SUBQ (13:17)
[2018-10-18] MEDS ORDERED: AMIO200T10 PO (13:17)
--- NOTE | 2018-10-18 14:20 | NUR ---
TRANSPORTATION IS SET UP WITH [facility], PER [place] [employer]WORTH[employer] SAFETY INSPECTOR WILL AT 1630. PRIMARY RN ARIAN MADE AWARE.
[2018-10-18] MEDS ORDERED: POTASSIUM CHLORIDE 40 MEQ, LIDOCAINE 1% 25 MG in NACL 0.9% 250 ML IV SCH (14:30)
[2018-10-18] MEDS ORDERED: MELA3TAB PO (15:07)
[2018-10-18] MEDS ORDERED: PRED20TA5 PO (15:07)
[2018-10-18] MEDS ORDERED: [UNRECOGNIZED DRUG - CODE] TP (15:07)
[2018-10-18] MEDS ORDERED: PUL.5N INH (15:07)
[2018-10-18] MEDS ORDERED: Hydraguard TP (15:07)
[2018-10-18] MEDS ORDERED: METO50TA99 PO (15:07)
--- NOTE | 2018-10-18 15:27 | NUR ---
PT HAVING BREATHING TREATMENT AT THIS TIME. NO SIGNS OF DISTRESS, RESPIRATIONS EVEN AND UNLABORED.
[2018-10-18] MEDS ORDERED: LISI-420 PO (15:57)
--- NOTE | 2018-10-18 16:07 | NUR ---
[place]ED [facility] [place] GAVE REPORT TO ALVIN TREVINO REGARDING PT CONDITION AND STATUS. ALL QUESTIONS ANSWERED, RN IS AWARE AND VERBALIZES UNDERSTANDING THAT PT WILL HAVE PHYSICAL THERAPY AT [facility] [place].
[2018-10-18] MEDS ORDERED: PNEUMOCOCCAL VACCINE 23 MCG/0.5 ML VIAL IMVAC SCH (16:15)
--- NOTE | 2018-10-18 16:45 | NUR ---
PT HAS BEEN DISCHARGED FOR TRANSFER TO [facility] [place]. ALL PAPERWORK SIGNED, ALL QUESTIONS ANSWERED, ALL BELONGINGS IN PT POSSESSION. DISCONTINUED PICC LINE USING ASEPTIC TECHNIQUE, CANNULA INTACT, NO ACTIVE BLEEDING NOTED, PRESSURE APPLIED TO AREA. WRISTBANDS AND TELE MONITOR REMOVED. PT TRANSFERRED OUT OF UNIT VIA GURNEY WITH [facility] P[facility]. PT IS IN STABLE CONDITION.
== END 2018-10-18 16:45 | DRG 870 ==
LOC: MED 21:46 → MIC 23:28 → MTU 10-15 04:52
PROVIDERS: ADMIT General Practice; ATTEND General Practice
PROC: 5A09357 Assistance with Respiratory Ventilation, Less than 24 Consecutive Hours, Continuous Positive Airway Pressure (ICD-10-PCS; 2018-10-06)
PROC: 0BH17EZ Insertion of Endotracheal Airway into Trachea, Via Natural or Artificial Opening (ICD-10-PCS; principal; 2018-10-07)
PROC: 5A1955Z Respiratory Ventilation, Greater than 96 Consecutive Hours (ICD-10-PCS; 2018-10-07)
PROC: 02HV33Z Insertion of Infusion Device into Superior Vena Cava, Percutaneous Approach (ICD-10-PCS; 2018-10-08)
PROC: B548ZZA Ultrasonography of Superior Vena Cava, Guidance (ICD-10-PCS; 2018-10-08)
PROC: 3E0234Z Introduction of Serum, Toxoid and Vaccine into Muscle, Percutaneous Approach (ICD-10-PCS; 2018-10-18)
DX: A41.9 Sepsis, unspecified organism (principal); R65.21 Severe sepsis with septic shock; I21.A1 Myocardial infarction type 2; N17.0 Acute kidney failure with tubular necrosis; J69.0 Pneumonitis due to inhalation of food and vomit; E43 Unspecified severe protein-calorie malnutrition; J96.21 Acute and chronic respiratory failure with hypoxia; E87.2 Acidosis; I13.0 Hypertensive heart and chronic kidney disease with heart failure and stage 1 through stage 4 chronic kidney disease, or unspecified chronic kidney disease; I16.1 Hypertensive emergency; I69.354 Hemiplegia and hemiparesis following cerebral infarction affecting left non-dominant side; J84.9 Interstitial pulmonary disease, unspecified; J98.11 Atelectasis; J44.1 Chronic obstructive pulmonary disease with (acute) exacerbation; Z68.1 Body mass index [BMI] 19.9 or less, adult; E03.9 Hypothyroidism, unspecified; E11.22 Type 2 diabetes mellitus with diabetic chronic kidney disease; E78.5 Hyperlipidemia, unspecified; E83.42 Hypomagnesemia; I25.10 Atherosclerotic heart disease of native coronary artery without angina pectoris; I25.2 Old myocardial infarction; I50.9 Heart failure, unspecified; N18.9 Chronic kidney disease, unspecified; F17.210 Nicotine dependence, cigarettes, uncomplicated; E87.6 Hypokalemia; Z68.21 Body mass index [BMI] 21.0-21.9, adult; Z59.0 Homelessness; Z91.14 Patient's other noncompliance with medication regimen; Z23 Encounter for immunization
CPT/HCPCS: 36415; 36600; 71045; 71250; 74018; 80048; 80053; 80305; 81001; 82040; 82150; 82553; 82803; 82948; 83036; 83605; 83690; 83735; 83880; 84100; 84439; 84443; 84484; 85025; 85610; 85730; 86702; 87040; 87070; 87081; 87086; 87116; 87190; 87205; 87206; 89220; 90732; 92610; 93005; 94002; 94003; 94640; 94660; 96365; 96367; 97110; 97116; 97161-GP; 97530; 99291; C1751; C9113; J0282; J0360; J0456; J1642; J1644; J1815; J1940; J2001; J2060; J2250; J2543; J2704; J2765; J2930; J3010; J3370; J3475; J3480; J3490; J7030; J7042; J7060; J7512; J7620; J7626; Q0092